=== PATIENT | female | born 1935 | race Caucasian/White ===

== ENCOUNTER 2016-11-26 17:14 | Emergency (ER) | payer MEDICARE, OTHER ==
[2016-11-26] MEDS ORDERED: ACETAMINOPHEN 325 MG TABLET PO ONE (18:04)
--- NOTE | 2016-11-26 19:25 | ER Document Report ---
ED Fall - General Chief Complaint: Fall Injury Stated Complaint: FALL LEFT LEG PAIN Time seen by provider: 19:25 Mode of Arrival: Medic Information source: Patient TRAVEL OUTSIDE OF THE [place] IN LAST 30 DAYS: No - HPI Patient complains to provider of: fall at home Occurred: Just prior to arrival Where: Home Associated symptoms: Difficulty walking Location of injury/pain: Back, Hip Quality of pain: Achy Severity: Moderate Pain Level: 4 Notes: Patient is an 81-year-old female brought to the emergency room by EMS for complaints of fall at home, patient cannot recall how she fell, she is unsure whether she tripped and fell or passed out and fell, only remembers waking up in the floor and was unable to ambulate, states she scooted herself to the telephone and called for help, patient denies any chest pain or shortness of breath, no dizziness or lightheadedness, no numbness or tingling, denies a head injury or headache, no vomiting, nausea or diarrhea, patient does report that symptoms are reminiscent of when she had a heart attack back in August and was transferred to [facility] and received a cardiac stent - Related data Allergies/Adverse Reactions: doxycycline [Doxycycline] Allergy (Severe, Verified 11/26/16 17:51) resp distress, tachycardia hydrochlorothiazide [From Dyazide] Allergy (Severe, Verified 11/26/16 17:51) swelling of airway and tongue triamterene [From Dyazide] Allergy (Severe, Verified 11/26/16 17:51) swelling of airway and tongue adhesive tape [Adhesive Tape] Allergy (Intermediate, Verified 11/26/16 17:51) blisters at site of application latex [Latex] Allergy (Intermediate, Verified 11/26/16 17:51) red rash at site of contact diphtheria,pertussis (acellular),te [From Adacel (Adolescent & Adult)] Allergy ( Verified 11/26/16 17:51) Past Medical History - General Information source: Patient - Social History Smoking Status: Never Smoker Family History: Reviewed & Not Pertinent - Past Medical History Cardiac Medical History: Reports: Hx Hypercholesterolemia, Hx Hypertension Denies: Hx Atrial Fibrillation, Hx Congestive Heart Failure, Hx Coronary Artery Disease, Hx Heart Attack, Hx Peripheral Vascular Disease, Hx Pulmonary Embolism, Hx Heart Murmur Pulmonary Medical History: Reports: Hx Pneumonia Denies: Hx Asthma, Hx Bronchitis, Hx COPD, Hx Respiratory Failure, Hx Sleep Apnea, Hx Tuberculosis Neurological Medical History: Denies: Hx Cerebrovascular Accident, Hx Seizures Endocrine Medical History: Reports: Hx Hypothyroidism. Denies: Hx Graves' Disease, Hx Hyperthyroidism Renal/ Medical History: Denies: Hx End Stage Renal Disease, Hx Kidney Stones, Hx Peritoneal Dialysis Malignancy Medical History: Denies: Hx Leukemia, Hx Lung Cancer GI Medical History: Reports: Hx Gastroesophageal Reflux Disease. 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 Denies: Hx Bowel Surgery, Hx Section, Hx Colostomy, Hx Coronary Artery Bypass Graft, Hx Gastric Bypass Surgery, Hx Herniorrhaphy, Hx Mastectomy, Hx Pacemaker, Hx Tonsillectomy , Hx Tubal Ligation - Immunizations Hx Diphtheria, Pertussis, Tetanus Vaccination: No Hx Pneumococcal Vaccination: 07/17/11 Review of Systems - Review of Systems Constitutional: No symptoms reported EENT: No symptoms reported Cardiovascular: No symptoms reported. denies: Chest pain Respiratory: No symptoms reported. denies: Short of breath Gastrointestinal: No symptoms reported. denies: Nausea, Vomiting Genitourinary: No symptoms reported Female Genitourinary: No symptoms reported Musculoskeletal: See HPI Skin: No symptoms reported Hematologic/Lymphatic: No symptoms reported Neurological/Psychological: No symptoms reported. denies: Headaches -: Yes All other systems reviewed and negative Physical Exam - Vital signs Vitals: Temp Pulse Resp BP Pulse Ox 97.8 F 63 19 167/80 H 98 11/26/16 18:02 11/26/16 18:02 11/26/16 18:02 11/26/16 18:02 11/26/16 18:02 Interpretation: Normal - General General appearance: Appears well, Alert - HEENT Head: Normocephalic, Atraumatic Eyes: Normal Pupils: PERRL - Respiratory Respiratory status: No respiratory distress Chest status: Nontender Breath sounds: Normal Chest palpation: Normal - Cardiovascular Rhythm: Regular Heart sounds: Normal auscultation Murmur: No - Abdominal Inspection: Normal Distension: No distension Bowel sounds: Normal Tenderness: Nontender Organomegaly: No organomegaly - Back Back: Normal, Nontender - Extremities General upper extremity: Normal inspection, Nontender, Normal color, Normal ROM , Normal temperature General lower extremity: Normal color, Normal temperature. No: Lyn's sign Hip: Tender - Tender to palpate over left hip, patient reports pain with range of motion testing, distal sensation and motor intact, 2+ DP pulses - Neurological Neuro grossly intact: Yes Cognition: Normal Orientation: AAOx4 [place] Coma Scale Eye Opening: Spontaneous Tab Coma Scale Verbal: Oriented [place] Coma Scale Motor: Obeys Commands [place] Coma Scale Total: 15 Speech: Normal Motor strength normal: LUE, RUE, LLE, RLE Sensory: Normal - Psychological Associated symptoms: Normal affect, Normal mood - Skin Skin Temperature: Warm Skin Moisture: Dry Skin Color: Normal Course - Re-evaluation Re-evalutation: 11/27/16 01:09 call to [facility] transfer center, requested callback from cardiology team 11/27/16 01:35 Patient was discussed with the large animal husbandry technician at [facility], who accepts patient on behalf of Dr. Baptiste him unfortunately the transfer center states they will not have up until the morning, I discussed this with patient at bedside who agree that they would prefer to wait until a bed becomes available at [facility] , since this is where she was treated and received a cardiac stent previously, since patient is pain-free and stable I agree with this plan and patient will be transferred at such time that a bed becomes available - Vital Signs Vital signs: Temp Pulse Resp BP Pulse Ox 97.8 F 63 17 133/79 H 95 11/26/16 18:02 11/26/16 18:02 11/27/16 05:01 11/27/16 05:01 11/27/16 05:01 - Laboratory Result Diagrams: 11/26/16 19:45 11/26/16 19:45 Laboratory results interpreted by me: 11/26/16 11/26/16 11/26/16 19:45 19:45 23:50 RDW 14.4 H Seg Neutrophils % 82.7 H Lymphocytes % 9.8 L Creatine Kinase 29 L 27 L - Diagnostic Test Radiology reviewed: Image reviewed, Reports reviewed - EKG Interpretation by Me EKG shows normal: Sinus rhythm Rate: Normal Rhythm: NSR Discharge - Discharge Clinical Impression: Non-ST elevation (NSTEMI) myocardial infarction Contusion of left hip Qualifiers: Encounter type: initial encounter Qualified Code(s): S70.02XA - Contusion of left hip, initial encounter Condition: Stable Disposition: [facility]
[2016-11-26] MEDS ORDERED: HYDROMORPHONE HCL INJ/PF 2 MG/ML AMPULE IV ONE (19:29)
[2016-11-26 19:57] LABS: ABSOLUTE BASOPHILS # (AUTO) 0.1 10^3/uL (0.0-0.2); ABSOLUTE EOSINOPHILS # (AUTO) 0.1 10^3/uL (0.0-0.6); ABSOLUTE LYMPHOCYTES (AUTO) 0.8 10^3/uL (0.5-4.7); ABSOLUTE MONOCYTES (AUTO) 0.5 10^3/uL (0.1-1.4); BASOPHILS % (AUTO) 0.7 % (0-2); EOSINOPHILS % (AUTO) 0.7 % (0-6); HEMATOCRIT 36.3 % (36.0-47.0); HEMOGLOBIN 12.7 g/dL (12.0-15.5); HGB HCT DIFFERENCE 1.8; LYMPHOCYTES % (AUTO) 9.8 % (13-45); MEAN CORPUSCULAR HEMOGLOBIN 29.6 pg (27.0-33.4); MEAN CORPUSCULAR HGB CONC 34.8 g/dL (32.0-36.0); MEAN CORPUSCULAR VOLUME 85 fl (80-97); MONOCYTES % (AUTO) 6.1 % (3-13); RED BLOOD COUNT 4.28 10^6/uL (3.72-5.28); RED CELL DISTRIBUTION WIDTH 14.4 % (11.5-14.0); SEGMENTED NEUTROPHILS % (AUTO) 82.7 % (42-78); WHITE BLOOD COUNT 8.4 10^3/uL (4.0-10.5)
[2016-11-26 20:21] LABS: ALANINE AMINOTRANSFERASE 21 U/L (9-52); ALBUMIN 3.9 g/dL (3.5-5.0); ALKALINE PHOSPHATASE 79 U/L (38-126); ANION GAP 11 (5-19); ASPARTATE AMINO TRANSFERASE 21 U/L (14-36); BILIRUBIN,TOTAL 0.4 mg/dL (0.2-1.3); BLOOD UREA NITROGEN 12 mg/dL (7-20); CALCIUM 9.5 mg/dL (8.4-10.2); CARBON DIOXIDE 28 mmol/L (22-30); CHLORIDE 106 mmol/L (98-107); CREATINE KINASE 29 U/L (30-135); CREATININE RESULT 0.72 mg/dL (0.52-1.25); GLUCOSE 98 mg/dL (75-110); POTASSIUM 3.7 mmol/L (3.6-5.0); TOTAL PROTEIN 6.3 g/dL (6.3-8.2)
[2016-11-26 20:32] LABS: CREATINE KINASE MB 0.82 ng/mL (<4.55)
[2016-11-26 20:36] LABS: TROPONIN I 0.035 ng/mL
[2016-11-26 21:21] LABS: PROTHROMBIN TIME 13.8 SEC (11.4-15.4)
[2016-11-26 21:22] LABS: PARTIAL THROMBOPLASTIN TIME 31.5 SEC (23.5-35.8)
[2016-11-27 00:25] LABS: CREATINE KINASE MB 1.12 ng/mL (<4.55)
[2016-11-27 00:28] LABS: TROPONIN I 0.209 ng/mL
[2016-11-27] MEDS ORDERED: ASPIRIN 81 MG TABLET, CHEWABLE PO ONE (01:09)
[2016-11-27] MEDS ORDERED: DIPHENHYDRAMINE HCL 50 MG/ML VIAL IV ONE (04:30)
[2016-11-27] MEDS ORDERED: ASPIRIN 81 MG TABLET, CHEWABLE ONE (04:33)
[2016-11-27 05:37] LABS: CREATINE KINASE MB 1.28 ng/mL (<4.55); TROPONIN I 0.225 ng/mL
[2016-11-27] MEDS ORDERED: ENOXAPARIN SODIUM INJ 60 MG/0.6 ML DISP.SYRIN SUBCUT ONE (08:19)
[2016-11-27] MEDS ORDERED: CLOPIDOGREL BISULFATE 300 MG TABLET PO ONE (08:19)
[2016-11-27] MEDS ORDERED: LEVOTHYROXINE SODIUM 0.025 MG TABLET PO ONE (08:20)
[2016-11-27] MEDS ORDERED: ATORVASTATIN CALCIUM 10 MG TABLET PO ONE (08:21)
[2016-11-27] MEDS ORDERED: BRIMONIDINE TARTRATE 0.2% OPH SOLN 5 ML OU ONE (08:22)
[2016-11-27] MEDS ORDERED: FAMOTIDINE INJ/PF 20 MG/2 ML SDV IV ONE (08:23)
--- NOTE | 2016-11-27 09:43 | EKG REPORT ---
SEVERITY:- ABNORMAL ECG - SINUS RHYTHM CONSIDER LEFT VENTRICULAR HYPERTROPHY : Confirmed by: Lucia Mayorga MD 27-Nov-2016 09:42:30
[2016-11-27] MEDS ORDERED: ONDANSETRON HCL INJ/PF 4 MG/2 ML SDV IV ONE (11:43)
[2016-11-27] MEDS ORDERED: HYDROMORPHONE HCL INJ/PF 2 MG/ML AMPULE IV ONE (11:43)
--- NOTE | 2016-11-27 15:56 | ER Document Report ---
Doctor's Note Notes: 11/27/16 15:56 pt stable at this time, reviewed labs and awaiting transfer
--- NOTE | 2016-11-27 15:58 | ER Document Report ---
Doctor's Note Notes: 11/27/16 15:55 The patient was turned over to me at shift change 6 AM this morning. She has been stable throughout the day. Her regular medications were ordered except for her blood pressure medication and nitrates, as she was chest pain-free throughout the day and her blood pressure ran in the 110 systolic range. Her Plavix was increased to 300 mg for today's dose, she did not receive any yesterday. She was also given a dose of Lovenox. She required one dose of hydromorphone 0.5 mg once this afternoon for her hip pain. She continues to wait on transfer to [facility], however I was recently told that there is a bed and they are coming for her now. Patient's care is turned over to Dr. Chaudhry at this time, pending arrival of the transport team.
[2016-11-27 18:40] VITALS: BP 110/57
== END 2016-11-27 18:00 | disposition short-term general hospital (02) ==
LOC: ER 17:14
DX: I21.4 Non-ST elevation (NSTEMI) myocardial infarction (principal); S70.02XA Contusion of left hip, initial encounter; W18.30XA Fall on same level, unspecified, initial encounter; Y92.009 Unspecified place in unspecified non-institutional (private) residence as the place of occurrence of the external cause; E78.00 Pure hypercholesterolemia, unspecified; I10 Essential (primary) hypertension; E03.9 Hypothyroidism, unspecified; Z90.49 Acquired absence of other specified parts of digestive tract; Z90.710 Acquired absence of both cervix and uterus; Z79.01 Long term (current) use of anticoagulants
CPT/HCPCS: 93005; 96376; 99285; 96372; 96374; 96375; 36415; 82553; 82550; 85025; 85610; 85730; 80053; 84484; 71010; 73552; 73502; 93010; A9270 ×5; J1200; J1170 ×2; J2405; J3490; J1650; S0028

== ENCOUNTER 2016-12-10 18:25 | Observation (INO) | payer MEDICARE, OTHER ==
[2016-12-10] MEDS ORDERED: NORMAL SALINE 1000 ML 1,000 ML IV ONE (19:02)
--- NOTE | 2016-12-10 19:02 | ER Document Report ---
ED General - General Mode of Arrival: Medic Information source: Patient TRAVEL OUTSIDE OF THE [place] IN LAST 30 DAYS: No - HPI Patient complains to provider of: Whole body stiffness Onset: Other - past 2 weeks Associated symptoms: Other - see above <BENNIE BLANCO - Last Filed: 12/10/16 21:54> <SONIA ORTEGA - Last Filed: 12/11/16 03:23> - General Chief Complaint: Hip Pain Stated Complaint: BACK PAIN Notes: 81 year old female with history of a hip replacement presents to the ED complaining of whole body stiffness and pain to the back and legs with movement that has been present since she was discharged from [facility] after suffering a fall on 11/25/2016. Patient's son states that after the fall, xrays were normal, but her troponin was elevated. Patient was transferred to [facility] where here troponin levels were normal and she was discharged after changing her Lipitor medication from 10mg to 40mg. Son states that the patient has been bed ridden for the past 2 weeks and has been having difficulty moving. Patient has not been eating or drinking normally and is complaining of whole body stiffness. Patient's primary care provider is Dr. Pastor. (BENNIE BLANCO) - Related Data Allergies/Adverse Reactions: doxycycline [Doxycycline] Allergy (Severe, Verified 11/26/16 17:51) resp distress, tachycardia hydrochlorothiazide [From Dyazide] Allergy (Severe, Verified 11/26/16 17:51) swelling of airway and tongue triamterene [From Dyazide] Allergy (Severe, Verified 11/26/16 17:51) swelling of airway and tongue adhesive tape [Adhesive Tape] Allergy (Intermediate, Verified 11/26/16 17:51) blisters at site of application latex [Latex] Allergy (Intermediate, Verified 11/26/16 17:51) red rash at site of contact diphtheria,pertussis (acellular),te [From Adacel (Adolescent & Adult)] Allergy ( Verified 11/26/16 17:51) Home Medications: Current Home Medications Acetaminophen [Tylenol] 325 mg PO PRN PRN 12/10/16 [History] Brimonidine Tartrate [Alphagan P] 5 ml OP PRN PRN 12/10/16 [History] Isosorbide Mononitrate [Isosorbide Mononitrate ER] 15 mg PO DAILY 12/10/16 [ History] Lidocaine [Lidocaine] 1 patch .ROUTE DAILY 12/10/16 [History] Metoprolol Succinate [Metoprolol Succinate] 12.5 mg PO DAILY 12/10/16 [History] Nitroglycerin [Nitroglycerin] 1 tab SL PRN PRN 12/10/16 [History] Pantoprazole Sodium 1 tab PO DAILY 12/10/16 [History] Polyethylene Glycol 3350 [Miralax Powder 17 gm/Packet] 1 packet PO DAILY [History] Past Medical History - General Information source: Patient, Relative - Social History Smoking Status: Unknown if Ever Smoked Family History: Reviewed & Not Pertinent - Past Medical History Cardiac Medical History: Reports: Hx Hypercholesterolemia, Hx Hypertension Pulmonary Medical History: Reports: Hx Pneumonia Endocrine Medical History: Reports: Hx Hypothyroidism GI Medical History: Reports: Hx Gastroesophageal Reflux Disease Musculoskeltal Medical History: Reports Hx Arthritis Traumatic Medical History: Reports: Hx Fractures - LEFT hip 2010, fell in kitchen at home Past Surgical History: Reports: Hx Abdominal Surgery - 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., Hx Appendectomy - at time of open nevaeh, Hx Cardiac Surgery - Stent 2015, Hx Cholecystectomy - open, Hx Hysterectomy, Hx Orthopedic Surgery - Hip replacement - Immunizations Hx Diphtheria, Pertussis, Tetanus Vaccination: No Hx Pneumococcal Vaccination: 07/17/11 <BENNIE BLANCO - Last Filed: 12/10/16 21:54> Review of Systems - Review of Systems Constitutional: See HPI, Recent illness - Fall on 11/25/2016 EENT: No symptoms reported Cardiovascular: No symptoms reported Respiratory: No symptoms reported Gastrointestinal: See HPI, Poor appetite, Poor fluid intake Genitourinary: No symptoms reported Female Genitourinary: No symptoms reported Musculoskeletal: See HPI, Back pain - with movement, Other - "whole body stiffness". Bilateral leg pain with movement. Skin: No symptoms reported Hematologic/Lymphatic: No symptoms reported Neurological/Psychological: No symptoms reported -: Yes All other systems reviewed and negative <BENNIE BLANCO - Last Filed: 12/10/16 21:54> Physical Exam - Vital signs Interpretation: Normal - General General appearance: Appears well In distress: None - HEENT Head: Normocephalic, Atraumatic Eyes: Normal Extraocular movements intact: Yes Pupils: PERRL - Respiratory Respiratory status: No respiratory distress Breath sounds: Normal - Cardiovascular Rhythm: Regular Heart sounds: Normal auscultation - Abdominal Inspection: Normal - Back Back: Tender - tenderness to palpation of the midline back from L3 to L5. No: Normal - Extremities General upper extremity: Normal inspection, Normal ROM General lower extremity: No: Normal inspection, Normal ROM - decreased range of motion of the bilateral lower extremities - Neurological Neuro grossly intact: Yes Cognition: Normal Orientation: AAOx4 [place] Coma Scale Eye Opening: Spontaneous [place] Coma Scale Verbal: Oriented Tab Coma Scale Motor: Obeys Commands Tab Coma Scale Total: 15 Speech: Normal - Psychological Associated symptoms: Normal affect, Normal mood - Skin Skin Temperature: Warm Skin Moisture: Dry Skin Color: Normal <BENNIE BLANCO - Last Filed: 12/10/16 21:54> <SONIA ORTEGA - Last Filed: 12/11/16 03:23> - Vital signs Vitals: Temp Pulse Resp BP Pulse Ox 98.5 F 63 22 H 129/68 H 97 12/10/16 18:41 12/10/16 18:41 12/10/16 18:41 12/10/16 18:41 12/10/16 18:41 (BENNIE BLANCO) (SONIA ORTEGA) Course - Laboratory Result Diagrams: 12/10/16 20:50 12/10/16 19:03 - Consults Dr. Dudley Time consulted: 21:42 Dr. Medel Time consulted: 21:49 <BENNIE BLANCO - Last Filed: 12/10/16 21:54> - Laboratory Result Diagrams: 12/10/16 20:50 12/10/16 19:03 - Diagnostic Test Radiology reviewed: Reports reviewed - EKG Interpretation by Sd EKG shows normal: Sinus rhythm Rate: Normal Rhythm: NSR <SONIA ORTEGA - Last Filed: 12/11/16 03:23> - Re-evaluation Re-evalutation: 12/11/16 Patient is an 81-year-old female who comes in complaining of hip and back pain. CT showing a femur fracture and also an L2 compression fracture. Patient was discussed with her orthopedic doctor, Dr. Dudley who will evaluate the patient. Patient will be admitted to medicine. No acute findings on blood work. This is been discussed with her son at length. Agrees with admission. (SONIA ORTEGA) - Vital Signs Vital signs: Temp Pulse Resp BP Pulse Ox 98.0 F 68 17 128/65 H 98 12/11/16 01:00 12/11/16 01:00 12/11/16 01:00 12/11/16 01:00 12/11/16 01:00 (BENNIE BLANCO) (SONIA ORTEGA) - Laboratory Laboratory results interpreted by me: 12/10/16 12/10/16 19:03 20:50 RBC 3.52 L Hgb 10.1 L Hct 30.6 L RDW 14.7 H Total Protein 6.2 L (SONIA ROTEGA) - Consults Dr. Dudley Reason for consultation: 12/10/16 21:42 Patient was discussed with Dr. Dudley and he agrees to consult with the patient in the morning. (BENNIE BLANCO) Dr. Medel Reason for consultation: 12/10/16 21:49 Patient was discussed with Dr. Medel and accepts the patient until Dr. Dudley consults in the morning. (BENNIE BLANCO) Discharge <BENNIE BLANCO - Last Filed: 12/10/16 21:54> - Discharge Admitting Provider: Ricardo Medel Unit Admitted: Telemetry <SONIA ORTEGA - Last Filed: 12/11/16 03:23> - Discharge Clinical Impression: Compression fracture of L2 Femur fracture, left Qualifiers: Encounter type: initial encounter Femur location: shaft Fracture type: closed Fracture morphology: oblique Fracture alignment: nondisplaced Qualified Code(s) : S72.335A - Nondisplaced oblique fracture of shaft of left femur, initial encounter for closed fracture Condition: Stable Disposition: ADMITTED INPATIENT Scribe Attestation: 12/11/16 03:23 I personally performed the services described in the documentation, reviewed and edited the documentation which was dictated to the scribe in my presence, and it accurately records my words and actions. (SONIA ORTEGA) Scribe Documentation - Scribe Written by Scribe:: Jason Nelson, 12/10/2016 20:05 acting as scribe for :: Kirstin <BENNIE BLANCO - Last Filed: 12/10/16 21:54>
[2016-12-10] MEDS ORDERED: MORPHINE SULFATE 10 MG/ML INJ IV ONE (19:03)
[2016-12-10] MEDS ORDERED: ONDANSETRON HCL INJ/PF 4 MG/2 ML SDV IV ONE (19:03)
[2016-12-10 19:19] LABS: PROTHROMBIN TIME 13.2 SEC (11.4-15.4)
[2016-12-10 19:33] LABS: ALANINE AMINOTRANSFERASE 33 U/L (9-52); ALBUMIN 3.6 g/dL (3.5-5.0); ALKALINE PHOSPHATASE 125 U/L (38-126); ANION GAP 13 (5-19); ASPARTATE AMINO TRANSFERASE 23 U/L (14-36); BILIRUBIN,TOTAL 0.7 mg/dL (0.2-1.3); BLOOD UREA NITROGEN 19 mg/dL (7-20); CALCIUM 9.6 mg/dL (8.4-10.2); CARBON DIOXIDE 23 mmol/L (22-30); CHLORIDE 105 mmol/L (98-107); CREATINE KINASE 62 U/L (30-135); CREATININE RESULT 0.75 mg/dL (0.52-1.25); GLUCOSE 92 mg/dL (75-110); POTASSIUM 3.9 mmol/L (3.6-5.0); TOTAL PROTEIN 6.2 g/dL (6.3-8.2)
[2016-12-10 21:13] LABS: ABSOLUTE BASOPHILS # (AUTO) 0.1 10^3/uL (0.0-0.2); ABSOLUTE EOSINOPHILS # (AUTO) 0.2 10^3/uL (0.0-0.6); ABSOLUTE LYMPHOCYTES (AUTO) 0.9 10^3/uL (0.5-4.7); ABSOLUTE MONOCYTES (AUTO) 0.5 10^3/uL (0.1-1.4); ABSOLUTE NEUT (AUTO) 3.6 10^3/uL (1.7-8.2); EOSINOPHILS % (AUTO) 3.9 % (0-6); HEMATOCRIT 30.6 % (36.0-47.0); HEMOGLOBIN 10.1 g/dL (12.0-15.5); HGB HCT DIFFERENCE -0.3; LYMPHOCYTES % (AUTO) 16.7 % (13-45); MEAN CORPUSCULAR HEMOGLOBIN 28.8 pg (27.0-33.4); MEAN CORPUSCULAR HGB CONC 33.1 g/dL (32.0-36.0); MEAN CORPUSCULAR VOLUME 87 fl (80-97); MONOCYTES % (AUTO) 9.1 % (3-13); RED BLOOD COUNT 3.52 10^6/uL (3.72-5.28); RED CELL DISTRIBUTION WIDTH 14.7 % (11.5-14.0); SEGMENTED NEUTROPHILS % (AUTO) 69.3 % (42-78); WHITE BLOOD COUNT 5.2 10^3/uL (4.0-10.5)
[2016-12-10 22:07] LABS: ADD ON TESTING BLD IN LAB ACKNOWLEDGE
[2016-12-10 22:28] LABS: MAGNESIUM 1.8 mg/dL (1.6-2.3)
[2016-12-10 23:48] LABS: CREATINE KINASE MB 0.91 ng/mL (<4.55)
[2016-12-10] MEDS ORDERED: ACETAMINOPHEN 325 MG TABLET PO PRN (23:49)
[2016-12-10] MEDS ORDERED: MAGNESIUM HYDROXIDE SUSP 30 ML UDCUP PO PRN (23:49)
[2016-12-10] MEDS ORDERED: POTASSI CL 20 MEQ/D5NS 1L 1,000 ML IV PRN (23:49)
[2016-12-10 23:50] LABS: TROPONIN I < 0.012 ng/mL
[2016-12-10] MEDS ORDERED: OXYCODONE HCL IR 5 MG TABLET PO PRN (23:55)
[2016-12-10] MEDS ORDERED: MORPHINE SULFATE 10 MG/ML INJ IV PRN (23:55)
[2016-12-11] MEDS ORDERED: MORPHINE SULFATE 10 MG/ML INJ IV ONE (00:13)
--- NOTE | 2016-12-11 00:20 | PDOC H&P ---
History of Present Illness Admission Date/PCP: 12/10/16 22:[address] replacement Dr[address] Luis Enrique Cruz Patient complains of: Lt LE pain History of Present Illness: LUCIANA HAGER is a 81 year old female, with underlying arthritis, status post left hip replacement in 2010 for fracture repair, status post fall on the 10th of this month onto her left side, with persistent pain along her left lower extremity and all over body stiffness. Was actually transferred to [facility] at the time of her fall for a troponin of 0.2, with subsequent workup there basically unremarkable, with neither stress test nor heart catheterization performed. Discharge summary and history and physical from [facility] have been reviewed. She is status post stent implant 1 in September of last year for chest pain after a fall. Workup here has revealed a fracture of the left femoral metaphysis, with previous hardware in place, along with a acute compression fracture of the second lumbar vertebra. No chest pain, nausea or vomiting. Patient has been discussed with emergency room physician who evaluated the patient. . Laboratory results are listed in [facility] and are reviewed. X-ray summary results are listed below, with full report(s) reviewed. . EKG pending Social history/personal habits: . Normally lives alone. Currently residing at [facility]. Has children. No use of tobacco alcohol or illicit drugs. Allergies/adverse reactions are listed in [facility] and are reviewed. Home medications are reviewed from a copy of the medication administration record from [facility] and are to be reconciled by nursing staff in [facility]. Home medications initially autopopulated into [facility] may not accurately reflect patient's true medications, dosages, and/or frequencies. REVIEW OF SYSTEMS: Constitutional: No fever or chills. Eyes: Wears glasses. ENT: No swallowing problems or complaints. No hearing problems or complaints. Pulmonary: No current complaints. Cardiovascular: No current complaints, including chest pain. Gastrointestinal: No current complaints, including nausea or vomiting. Skin: No current complaints, including rashes. Hematologic: Easy bruising. Neurologic: No current complaints, including numbness or tingling. Musculoskeletal: See history and present illness. Psychiatric: Anxiety Endocrine: No current complaints, including polyuria. Genitourinary: No current complaints, including dysuria. PHYSICAL EXAMINATION: 5 feet 7 inches tall. 54.4 kg. BMI 18.8 kg/m. Pulse 63. Blood pressure 129/ 68. Respirations are 22 and unlabored. 97% saturation on room air. Temperature 98.5. Thin somewhat chronically ill-appearing female who appears perhaps a bit older than her stated age. She is awake alert pleasant and cooperative. A bit argumentative at times. Son is present at her side; patient approves. Skin is warm and dry. No grossly obvious evidence of rash in areas of skin examined. No subcutaneous nodules palpated. ENT: Hearing grossly normal to normal conversation. Tongue midline on protrusion pink and slightly tacky. Eyes: No scleral icterus. Pupils equal and reactive to light at 4 mm. Solen conjunctivae. Neck is supple and nontender to gentle active range of motion and palpation. Midline trachea. No palpable thyroid nodule mass enlargement or tenderness. Lymphatic: No palpable cervical or clavicular nodes. Psychiatric: Reasonable insight into acute and chronic medical issues. Oriented to time location and why here. Lungs: Auscultation reveals clear and equal breath sounds bilaterally. No use of accessory respiratory muscles. Cardiovascular: Heart regular rate and rhythm, without gallop murmur or rub. No carotid or abdominal aortic bruits. No ankle or pedal edema. Faintly palpable dorsalis pedis pulses. Abdomen: soft, , nontender with positive bowel sounds. No palpable upper abdominal mass or organomegaly.. Extremities: Feet are warm and dry. No calf tenderness to compression. No grossly obvious visual evidence of calf swelling. Gentle manipulation of right lower extremity fails to reveal any obvious evidence of injury or instability to knee hip or ankle. Not attempted on left due to her injury. Neurologic: Moves upper extremities grossly normally. Patellar reflexes absent. Absent Babinski, right; not attempted on left due to her injury. Light touch is intact at feet. Dorsiflexion and plantarflexion of feet 5 / 5 and symmetric. 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 Denies: Hemorrhagic CVA, Ischemic CVA, Seizures Endocrine Medical History: Reports: Hypothyroidism Denies: Diabetes Mellitus Type 1, Diabetes Mellitus Type 2, Hyperthyroidism Renal/ Medical History: Reports: Other - Occasional UTI Denies: End Stage Renal Disease Malignancy Medical History: Reports: Skin Cancer - Several precancerous skin lesions excised from face Denies: Leukemia, Lung Cancer GI Medical History: Reports: Gastroesophageal Reflux Disease Denies: Cirrhosis, Crohn's Disease, Hepatitis, Hiatal Hernia Musculoskeltal Medical History: Reports: Arthritis Denies: Fibromyalgia Skin Medical History: Denies: Eczema, Psoriasis Psychiatric Medical History: Reports: General Anxiety Disorder Denies: Alcohol Dependency, Bipolar Disorder, Dementia, Depression, Post Traumatic Stress Disorder, Substance Abuse, Tobacco Dependency Hematology: Reports: Anemia - as chid only, Other - Easy bruising Denies: Hemophilia, Sickle Cell Disease Infectious Medical History: Denies: Hepatitis B, Hepatitis C, HIV Past Surgical History Past Surgical History: Reports: Appendectomy - at time of open nevaeh, Cholecystectomy - open, Coronary Stent - September 2016 [facility] , Hysterectomy, Orthopedic Surgery - Hip replacement, 2010 Denies: Amputation, Section, Colostomy, Coronary Artery Bypass Graft , Gastric Bypass Surgery, Herniorrhaphy, Mastectomy, Pacemaker, Tonsillectomy, Tubal Ligation Social History Information Source: Patient, Relative, Emergency Med Personnel, [facility] Records Lives with: [facility] Smoking Status: Unknown if Ever Smoked Frequency of Alcohol Use: None Hx Recreational Drug Use: No Hx Prescription Drug Abuse: No - Advance Directive Resuscitation Status: Full Code Surrogate healthcare decision maker:: Twin son and daughter Family History Family History: Reviewed & Not Pertinent Parental Family History Reviewed: Yes Children Family History Reviewed: Yes Sibling(s) Family History Reviewed.: Yes Medication/Allergy Home Medications: RX: Amlodipine Besylate [Norvasc 2.5 mg Tablet] 2.5 mg PO DAILY 12/11/16 RX: Aspirin [Ecotrin 81 mg EC Tablet] 81 mg PO DAILY 12/11/16 RX: Atorvastatin Calcium [Lipitor 10 mg Tablet] 10 mg PO QHS 12/11/16 RX: Biotin [Biotin 1 mg Tablet] 4 mg PO Q6HP PRN 12/11/16 RX: Brimonidine Tartrate [Alphagan P] 1 drop OU BID 12/11/16 RX: Clopidogrel Bisulfate [Plavix 75 mg Tablet] 75 mg PO DAILY 12/11/16 RX: Cyanocobalamin (Vitamin B-12) [B-12] 1,000 mcg PO DAILY 12/11/16 RX: Ergocalciferol (Vitamin D2) [Drisdol 50,000 unit (1.25MG) Capsule] 50,000 unit PO [id number] 12/11/16 RX: Fesoterodine Fumarate [Toviaz] 4 mg PO DAILY 12/11/16 RX: Isosorbide Mononitrate [Isosorbide Mononitrate ER] 30 mg PO QAM 12/11/16 RX: Levothyroxine Sodium [Synthroid] 25 mcg PO QAM 12/11/16 RX: Lidocaine [Lidoderm] 1 patch TOP DAILY 12/11/16 RX: Lisinopril 5 mg PO QAM 12/11/16 RX: Metoprolol Succinate [Toprol Xl] 12.5 mg PO DAILY 12/11/16 RX: Multivit-Min/Iron Fum/Folic AC [Vgqcv-Xfmirda-Pjkfuiul Tablet] 1 tab PO DAILY 12/11/16 RX: Nitroglycerin 0.4 mg PO PRN PRN 12/11/16 RX: Ondansetron HCl [Zofran 4 mg Tablet] 4 mg PO Q4HP PRN 12/11/16 RX: Polyethylene Glycol 3350 [Miralax Powder 17 gm/Packet] 17 gm PO DAILYP PRN 12/11/16 RX: Acetaminophen [Tylenol 325 mg Tablet] 650 mg PO Q4HP PRN tablet 12/16/16 RX: Citalopram Hydrobromide [Celexa 20 mg Tablet] 10 mg PO DAILY tablet RX: Docusate Sodium [Colace 100 mg Capsule] 100 mg PO BID capsule 12/16/16 RX: Gabapentin [Neurontin 100 mg Capsule] 100 mg PO QHS capsule 12/16/16 RX: Magnesium Hydroxide [Milk of Magnesia 30 ml Udcup] 30 ml PO Q48HP PRN udc 12/16/16 RX: Methyl Salicylate/Menthol [Zac-[facility] [place] 29 gm] 1 applic TP TIDP PRN tube 12/16/16 RX: Oxycodone HCl [Oxy-Ir 5 mg Tablet] 5 mg PO Q8 #15 tablet 12/16/16 Allergies/Adverse Reactions: doxycycline [Doxycycline] Allergy (Severe, Verified 11/26/16 17:51) resp distress, tachycardia hydrochlorothiazide [From Dyazide] Allergy (Severe, Verified 11/26/16 17:51) swelling of airway and tongue triamterene [From Dyazide] Allergy (Severe, Verified 11/26/16 17:51) swelling of airway and tongue adhesive tape [Adhesive Tape] Allergy (Intermediate, Verified 11/26/16 17:51) blisters at site of application latex [Latex] Allergy (Intermediate, Verified 11/26/16 17:51) red rash at site of contact diphtheria,pertussis (acellular),te [From Adacel (Adolescent & Adult)] Allergy ( Verified 11/26/16 17:51) Physical Exam Vital Signs: Temp Pulse Resp BP Pulse Ox 98.5 F 63 22 H 129/68 H 97 12/10/16 18:41 12/10/16 18:41 12/10/16 18:41 12/10/16 18:41 12/10/16 18:41 Results Impressions: Abdomen/Pelvis CT 12/10/16 19:03 IMPRESSION: New Mild compression fracture of the L2 vertebral body superior endplate. There are also nondisplaced fractures in the proximal left femoral metaphysis, the prosthesis appears intact and in expected position, and this fracture was not seen on the 11/26/2016 radiograph. Otherwise, NO ACUTE PROCESS IN THE ABDOMEN OR PELVIS. Assessment & Plan - Diagnosis (1) Anemia Qualifiers: Anemia type: unspecified type Qualified Code(s): D64.9 - Anemia, unspecified Is this a current diagnosis for this admission?: YesPlan: No need for transfusion at present. Repeat CBC. Stool for occult blood. (2) Compression fracture of L2 Is this a current diagnosis for this admission?: YesPlan: Pain control. Orthopedics consult; Dr. Dudley aware patient has been admitted and will see her in consultation. Impression and plans were discussed with patient, and son, both of whom concur. Time spent in evaluation and management of patient: 68 minutes. (3) DVT prophylaxis Is this a current diagnosis for this admission?: YesPlan: SCDs. Medical prophylaxis per orthopedics, per usual protocol. (4) Femur fracture, left Qualifiers: Encounter type: initial encounter Femur location: shaft Fracture type: closed Fracture morphology: oblique Fracture alignment: nondisplaced Qualified Code(s): S72.335A - Nondisplaced oblique fracture of shaft of left femur, initial encounter for closed fracture Is this a current diagnosis for this admission?: Yes (5) Stented coronary artery Is this a current diagnosis for this admission?: YesPlan: Cardiac enzymes. EKG is pending. Preop cardiology consult. (6) DNR (do not resuscitate) Is this a current diagnosis for this admission?: YesPlan: Implications of DO NOT RESUSCITATE/DO NOT INTUBATE status discussed with patient and son. Discussed in layperson's terms. Implications understood. Patient is the health care decision maker. Her conversation is lucid and appropriate. Patient desires DO NOT RESUSCITATE/DO NOT INTUBATE status, as has been the case in the past.. Will honor patient wishes. (7) HTN (hypertension) Qualifiers: Hypertension type: essential hypertension Qualified Code(s): I10 - Essential (primary) hypertension Is this a current diagnosis for this admission?: YesPlan: Resume home medications as appropriate once these have been reviewed. (8) Hyperlipidemia Qualifiers: Hyperlipidemia type: unspecified Qualified Code(s): E78.5 - Hyperlipidemia, unspecified Is this a current diagnosis for this admission?: YesPlan: Resume home medications as appropriate once these have been reviewed. (9) Hypothyroid Qualifiers: Hypothyroidism type: unspecified Qualified Code(s): E03.9 - Hypothyroidism, unspecified Is this a current diagnosis for this admission?: YesPlan: TSH is pending. Resume home medications as appropriate once these have been reviewed. - Inpatient Certification Based on my medical assessment, after consideration of the patient's comorbidities, presenting symptoms, or acuity I expect that the services needed warrant INPATIENT care.: Yes I certify that my determination is in accordance with my understanding of Medicare's requirements for reasonable and necessary INPATIENT services [42 CFR 412.3e].: Yes Medical Necessity: Need For Continuous Telemetry Monitoring, Need for Pain Control, Need for Surgery, Risk of Diagnosis Which Will Require Inpatient Eval/ Care/Monitoring Post Hospital Care: D/C or Transfer Summary
[2016-12-11] MEDS ORDERED: ACETAMINOPHEN 325 MG TABLET PO PRN (04:09)
[2016-12-11] MEDS ORDERED: LEVOTHYROXINE SODIUM 0.025 MG TABLET PO SCH (06:00)
[2016-12-11 06:40] LABS: HEMOGLOBIN 10.4 g/dL (12.0-15.5); HGB HCT DIFFERENCE -1.8; MEAN CORPUSCULAR HGB CONC 31.6 g/dL (32.0-36.0); MEAN CORPUSCULAR VOLUME 89 fl (80-97); RED BLOOD COUNT 3.72 10^6/uL (3.72-5.28); RED CELL DISTRIBUTION WIDTH 14.4 % (11.5-14.0); WHITE BLOOD COUNT 5.7 10^3/uL (4.0-10.5)
--- NOTE | 2016-12-11 07:03 | PDOC CONSULTATION ---
Consultation Consult Date: 12/11/16 Consult reason:: Left leg and low back pain History of Present Illness Admission Date/PCP: 12/10/16 23:49 History of Present Illness: The patient is an 81-year-old white female with multiple medical ongoing issues including cardiac stent placement recently. She fell on 11/25/2016 and sustained injuries to her left leg and her low back. She was hospitalized in [place] without a clear diagnosis. Her pain and functional disability have continued. She was evaluated emergency room last night where an L2 compression fracture and a left proximal femur fracture were identified. Orthopedics was consult at for fracture management. 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 Denies: Hemorrhagic CVA, Ischemic CVA, Seizures Endocrine Medical History: Reports: Hypothyroidism Denies: Diabetes Mellitus Type 1, Diabetes Mellitus Type 2, Hyperthyroidism Renal/ Medical History: Reports: Other - Occasional UTI Denies: End Stage Renal Disease Malignancy Medical History: Reports: Skin Cancer - Several precancerous skin lesions excised from face Denies: Leukemia, Lung Cancer GI Medical History: Reports: Gastroesophageal Reflux Disease Denies: Cirrhosis, Crohn's Disease, Hepatitis, Hiatal Hernia Musculoskeltal Medical History: Reports: Arthritis Denies: Fibromyalgia Skin Medical History: Denies: Eczema, Psoriasis Psychiatric Medical History: Reports: General Anxiety Disorder Denies: Alcohol Dependency, Bipolar Disorder, Dementia, Depression, Post Traumatic Stress Disorder, Substance Abuse, Tobacco Dependency Hematology: Reports: Anemia - as chid only, Other - Easy bruising Denies: Hemophilia, Sickle Cell Disease Infectious Medical History: Denies: Hepatitis B, Hepatitis C, HIV Past Surgical History Past Surgical History: Reports: Appendectomy - at time of open nevaeh, Cholecystectomy - open, Coronary Stent - September 2016 [facility] , Hysterectomy, Orthopedic Surgery - Hip replacement, 2010 Denies: Amputation, Section, Colostomy, Coronary Artery Bypass Graft , Gastric Bypass Surgery, Herniorrhaphy, Mastectomy, Pacemaker, Tonsillectomy, Tubal Ligation Social History Information Source: Patient, Relative, [facility] Records [facility] with: [facility] Smoking Status: Never Smoker Frequency of Alcohol Use: None Hx Recreational Drug Use: No Drugs: None Hx Prescription Drug Abuse: No - Advance Directive Resuscitation Status: Full Code Family History Family History: Reviewed & Not Pertinent Parental Family History Reviewed: No Children Family History Reviewed: No Sibling(s) Family History Reviewed.: No Medication/Allergy Home Medications: Cyanocobalamin (Vitamin B-12) [Vitamin B-12 1000 mcg Tablet] 1,000 mcg PO QAM Fesoterodine Fumarate [Toviaz] 4 mg PO DAILY #30 tab.sr.24h 06/16/15 Lisinopril 20 mg PO QAM 07/08/15 Aspirin 81 mg PO DAILY 12/10/15 Biotin [Biotin-D] 1 gm PO DAILY 12/10/15 Levothyroxine Sodium [Synthroid 0.1 mg Tablet] 0.1 mg PO DAILY 12/10/15 Sertraline HCl [Zoloft] 25 mg PO DAILY 12/10/15 Atorvastatin Calcium [Lipitor 10 mg Tablet] 10 mg PO QHS 05/29/16 Ondansetron [Zofran Odt 4 mg Tablet] 4 mg PO Q4HP PRN #20 tab.rapdis 09/11/16 Clopidogrel Bisulfate [Plavix] 1 tab PO DAILY 11/27/16 Docusate Sodium 100 cap PO PRN PRN 11/27/16 Acetaminophen [Tylenol] 325 mg PO PRN PRN 12/10/16 Brimonidine Tartrate [Alphagan P] 5 ml OP PRN PRN 12/10/16 Isosorbide Mononitrate [Isosorbide Mononitrate ER] 15 mg PO DAILY 12/10/16 Lidocaine [Lidocaine] 1 patch .ROUTE DAILY 12/10/16 Metoprolol Succinate [Metoprolol Succinate] 12.5 mg PO DAILY 12/10/16 Nitroglycerin [Nitroglycerin] 1 tab SL PRN PRN 12/10/16 Pantoprazole Sodium 1 tab PO DAILY 12/10/16 Polyethylene Glycol 3350 [Miralax Powder 17 gm/Packet] 1 packet PO DAILY Allergies/Adverse Reactions: doxycycline [Doxycycline] Allergy (Severe, Verified 11/26/16 17:51) resp distress, tachycardia hydrochlorothiazide [From Dyazide] Allergy (Severe, Verified 11/26/16 17:51) swelling of airway and tongue triamterene [From Dyazide] Allergy (Severe, Verified 11/26/16 17:51) swelling of airway and tongue adhesive tape [Adhesive Tape] Allergy (Intermediate, Verified 11/26/16 17:51) blisters at site of application latex [Latex] Allergy (Intermediate, Verified 11/26/16 17:51) red rash at site of contact diphtheria,pertussis (acellular),te [From Adacel (Adolescent & Adult)] Allergy ( Verified 11/26/16 17:51) Review of Systems All systems: as per PMH Physical Exam Vital Signs: Temp Pulse Resp BP Pulse Ox 36.7 C 67 17 128/65 H 98 12/11/16 01:00 12/11/16 02:00 12/11/16 01:00 12/11/16 01:00 12/11/16 01:00 Intake & Output 12/09/16 12/10/16 12/11/16 06:59 06:59 06:59 Intake Total 320 Balance 320 Weight 54.8 kg General appearance: PRESENT: mild distress, thin Head exam: PRESENT: normocephalic Eye exam: PRESENT: EOMI Respiratory exam: PRESENT: unlabored Cardiovascular exam: PRESENT: RRR Pulses: PRESENT: +1 pedal pulses bilateral Vascular exam: PRESENT: normal capillary refill GI/Abdominal exam: PRESENT: soft Rectal exam: PRESENT: deferred Extremities exam: PRESENT: other - Passive range of motion of the left lower extremity is painful both in the groin as well as in the low back. Distal neurovascular examination is without focal deficit. Neurological exam: PRESENT: alert, awake, oriented to person, oriented to place , oriented to time, oriented to situation Psychiatric exam: PRESENT: appropriate affect, normal mood. ABSENT: homicidal ideation, suicidal ideation Results Laboratory Results: 12/11/16 06:02 12/11/16 06:02 WBC 5.7 RBC 3.72 Hgb 10.4 L Hct 33.0 L MCV 89 MCH 28.0 MCHC 31.6 L RDW 14.4 H Plt Count 242 Impressions: Abdomen/Pelvis CT 12/10/16 19:03 IMPRESSION: New Mild compression fracture of the L2 vertebral body superior endplate. There are also nondisplaced fractures in the proximal left femoral metaphysis, the prosthesis appears intact and in expected position, and this fracture was not seen on the 11/26/2016 radiograph. Otherwise, NO ACUTE PROCESS IN THE ABDOMEN OR PELVIS. Status: Imported from PACS Assessment & Plan - Diagnosis (1) Compression fracture of L2 Is this a current diagnosis for this admission?: YesPlan: 81-year-old white female status post fall in November 25 with a presumed acute L2 compression fracture. She may benefit from kyphoplasty. I've taken the liberty of consult [facility] pain management for consideration thereof. (2) Femur fracture, left Qualifiers: Encounter type: initial encounter Femur location: shaft Fracture type: closed Fracture morphology: oblique Fracture alignment: nondisplaced Qualified Code(s): S72.335A - Nondisplaced oblique fracture of shaft of left femur, initial encounter for closed fracture Is this a current diagnosis for this admission?: YesPlan: 81-year-old female status post left proximal femoral hemiarthroplasty in 2010 now with what appears to be potentially an avulsion fracture at the lesser trochanter. This is opposed to a structural significant fracture and I think that the implant continues to be stable. I don't think any acute therapy as needed for this other than physical therapy to mobilize on a weightbearing as tolerated basis. - Time Time Spent: 50 to 70 Minutes Anticipated discharge: SNF Within: Other
[2016-12-11] MEDS ORDERED: CYANOCOBALAMIN (VITAMIN B-12) 1,000 MCG TABLET PO SCH (08:00)
[2016-12-11] MEDS: OXYCODONE HCL IR 5 MG TABLET PO PRN ×2 (09:50→17:07)
[2016-12-11] MEDS: DOCUSATE SODIUM 100 MG CAPSULE PO SCH ×2 (09:51→17:07)
[2016-12-11] MEDS: BRIMONIDINE TARTRATE 0.2% OPH SOLN 5 ML OU SCH ×2 (09:54→17:08)
[2016-12-11] MEDS ORDERED: ISOSORBIDE MONONITRATE 30 MG TAB.ER.24H PO SCH (10:00)
[2016-12-11] MEDS ORDERED: ASPIRIN 81 MG TABLET, CHEWABLE PO SCH (10:00)
[2016-12-11] MEDS ORDERED: METOPROLOL SUCCINATE 25 MG TAB.SR.24H PO SCH (10:00)
[2016-12-11] MEDS ORDERED: CLOPIDOGREL BISULFATE 75 MG TABLET PO SCH (10:00)
[2016-12-11] MEDS ORDERED: (PENDING PHARMACY ID) (Sertraline Hcl [Zoloft] 25 MG) PO SCH (10:00)
[2016-12-11] MEDS ORDERED: LISINOPRIL 10 MG TABLET PO SCH (10:00)
[2016-12-11] MEDS ORDERED: SERTRALINE HCL 50 MG TABLET PO SCH (10:00)
[2016-12-11] MEDS ORDERED: POLYETHYLENE GLYCOL 3350 POWDER 17 GM/1 PACKET PO SCH (10:00)
[2016-12-11] MEDS ORDERED: (PENDING PHARMACY ID) (Brimonidine Tartrate [Alphagan P] 1 DROP) OU SCH ×2 (10:00→18:00)
--- NOTE | 2016-12-11 12:54 | EKG REPORT ---
SEVERITY:- ABNORMAL ECG - SINUS RHYTHM ABNORMAL T, CONSIDER ISCHEMIA, ANT-LAT LEADS : Confirmed by: Lucia Mayorga MD 11-Dec-2016 12:53:54
[2016-12-11] MEDS ORDERED: (PENDING PHARMACY ID) (Ondansetron Hcl [Zofran 4 Mg Tablet] 4 MG) PO PRN (14:38)
[2016-12-11] MEDS ORDERED: BIOTIN PO PRN (14:38)
[2016-12-11] MEDS ORDERED: POLYETHYLENE GLYCOL 3350 POWDER 17 GM/1 PACKET PO PRN (14:38)
[2016-12-11] MEDS ORDERED: ERGOCALCIFEROL (VITAMIN D2) 50000 UNIT (1.25 MG) CAPSULE PO SCH (15:00)
[2016-12-11] MEDS ORDERED: ONDANSETRON 4 MG TAB.RAPDIS PO PRN (15:17)
--- NOTE | 2016-12-11 17:14 | PDOC PROGRESS REPORT ---
Subjective Progress Note for:: 12/11/16 Subjective:: The patient was seen earlier today on rounds. Pain is well controlled. Daughter is present the bedside I given the patient's care. The patient denies any nausea, vomiting, diarrhea, shortness of breath, dizziness, chest pain, heart palpitations, fevers, or chills. The patient has remained afebrile. Blood pressures have been in a good range. When prompted the patient voices no other concerns at this time. Review of systems: The rest of the review of systems is negative. Physical Exam Vital Signs: Temp Pulse Resp BP Pulse Ox 98.0 F 59 L 14 106/61 96 12/11/16 16:48 12/11/16 16:48 12/11/16 16:48 12/11/16 16:48 12/11/16 16:48 Intake & Output 12/09/16 12/10/16 12/11/16 23:59 23:59 23:59 Intake Total 320 Balance 320 Weight 54.8 kg General appearance: PRESENT: no acute distress, thin Head exam: PRESENT: atraumatic, normocephalic Eye exam: PRESENT: conjunctiva pale, EOMI, PERRLA. ABSENT: scleral icterus Ear exam: PRESENT: normal external ear exam Mouth exam: PRESENT: moist, tongue midline Neck exam: ABSENT: carotid bruit, JVD, lymphadenopathy, thyromegaly Respiratory exam: PRESENT: clear to auscultation chiquita. ABSENT: rales, rhonchi, wheezes Cardiovascular exam: PRESENT: RRR. ABSENT: diastolic murmur, rubs, systolic murmur Pulses: PRESENT: normal dorsalis pedis pul Vascular exam: PRESENT: normal capillary refill GI/Abdominal exam: PRESENT: normal bowel sounds, soft. ABSENT: distended, guarding, mass, organolmegaly, rebound, tenderness Rectal exam: PRESENT: deferred Extremities exam: PRESENT: full ROM. ABSENT: calf tenderness, clubbing, pedal edema Neurological exam: PRESENT: alert, awake, oriented to person, oriented to place , oriented to time, oriented to situation, CN II-XII grossly intact. ABSENT: motor sensory deficit Psychiatric exam: PRESENT: appropriate affect, normal mood. ABSENT: homicidal ideation, suicidal ideation Skin exam: PRESENT: dry, intact, warm. ABSENT: cyanosis, rash Results Laboratory Results: 12/11/16 06:02 01/26/17 06:02 WBC 5.7 RBC 3.72 Hgb 10.4 L Hct 33.0 L MCV 89 MCH 28.0 MCHC 31.6 L RDW 14.4 H Plt Count 242 Impressions: Abdomen/Pelvis CT 12/10/16 19:03 IMPRESSION: New Mild compression fracture of the L2 vertebral body superior endplate. There are also nondisplaced fractures in the proximal left femoral metaphysis, the prosthesis appears intact and in expected position, and this fracture was not seen on the 11/26/2016 radiograph. Otherwise, NO ACUTE PROCESS IN THE ABDOMEN OR PELVIS. Assessment & Plan - Diagnosis (1) Compression fracture of L2 Is this a current diagnosis for this admission?: YesPlan: The patient is to be seen by Dr. Mauricio for evaluation for kyphoplasty. (2) Femur fracture, left Qualifiers: Encounter type: initial encounter Femur location: shaft Fracture type: closed Fracture morphology: oblique Fracture alignment: nondisplaced Qualified Code(s): S72.335A - Nondisplaced oblique fracture of shaft of left femur, initial encounter for closed fracture Is this a current diagnosis for this admission?: YesPlan: Patient has been seen with Dr. Dudley with orthopedics. The patient has not operative candidate this point. (3) HTN (hypertension) Qualifiers: Hypertension type: essential hypertension Qualified Code(s): I10 - Essential (primary) hypertension Is this a current diagnosis for this admission?: Yes (4) Hyperlipidemia Qualifiers: Hyperlipidemia type: unspecified Qualified Code(s): E78.5 - Hyperlipidemia, unspecified Is this a current diagnosis for this admission?: Yes (5) Hypothyroid Qualifiers: Hypothyroidism type: unspecified Qualified Code(s): E03.9 - Hypothyroidism, unspecified Is this a current diagnosis for this admission?: Yes (6) DNR (do not resuscitate) Is this a current diagnosis for this admission?: Yes (7) DVT prophylaxis Is this a current diagnosis for this admission?: Yes (8) Stented coronary artery Is this a current diagnosis for this admission?: Yes - Time Time Spent with patient: on this visit including assessment, plan, physical examination, family meeting, and specialty collaboration, and patient education is 35 minutes. Time Spent with patient: 35 or more minutes Medications reviewed and adjusted accordingly: Yes Anticipated discharge: SNF Within: when bed available Disposition: The patient is a DO NOT RESUSCITATE DO NOT INTUBATE. Pending patient's symptomatology and diagnostic findings will reevaluate as needed.
[2016-12-11] MEDS ORDERED: POTASSI CL 20 MEQ/D5NS 1L 1,000 ML IV PRN (21:08)
[2016-12-11] MEDS: LIDOCAINE 5% (700 MG) TRANSDERMAL ADH..PATCH TOP SCH (21:36)
[2016-12-11] MEDS: LIDOCAINE 5% (700 MG) TRANSDERMAL ADH..PATCH TP SCH (21:36)
[2016-12-11] MEDS: ATORVASTATIN CALCIUM 10 MG TABLET PO SCH (21:36)
[2016-12-11] MEDS ORDERED: ATORVASTATIN CALCIUM 10 MG TABLET PO SCH (22:00)
--- NOTE | 2016-12-12 07:03 | PDOC PROGRESS REPORT ---
Subjective Progress Note for:: 12/12/16 Subjective:: Patient more comfortable today Physical Exam Vital Signs: Temp Pulse Resp BP Pulse Ox 36.8 C 49 L 18 104/52 L 97 12/11/16 23:53 12/12/16 02:00 12/11/16 23:53 12/11/16 23:53 12/11/16 23:53 Intake & Output 12/11/16 12/12/16 12/13/16 06:59 06:59 06:59 Intake Total 320 450 Balance 320 450 Weight 54.8 kg 58.4 kg Results Laboratory Results: 12/11/16 06:02 Impressions: Abdomen/Pelvis CT 12/10/16 19:03 IMPRESSION: New Mild compression fracture of the L2 vertebral body superior endplate. There are also nondisplaced fractures in the proximal left femoral metaphysis, the prosthesis appears intact and in expected position, and this fracture was not seen on the 11/26/2016 radiograph. Otherwise, NO ACUTE PROCESS IN THE ABDOMEN OR PELVIS. Assessment & Plan - Diagnosis (1) Compression fracture of L2 Is this a current diagnosis for this admission?: YesPlan: Awaiting MRI scan (2) Femur fracture, left Qualifiers: Encounter type: initial encounter Femur location: shaft Fracture type: closed Fracture morphology: oblique Fracture alignment: nondisplaced Qualified Code(s): S72.335A - Nondisplaced oblique fracture of shaft of left femur, initial encounter for closed fracture Is this a current diagnosis for this admission?: YesPlan: Can be mobilized on a weightbearing to comfort basis
[2016-12-12] MEDS: OXYCODONE HCL IR 5 MG TABLET PO PRN ×3 (08:17→20:26)
[2016-12-12] MEDS: LEVOTHYROXINE SODIUM 0.025 MG TABLET PO SCH (08:17)
[2016-12-12] MEDS: LISINOPRIL 5 MG TABLET PO SCH (08:17)
[2016-12-12] MEDS: ISOSORBIDE MONONITRATE 30 MG TAB.ER.24H PO SCH (08:18)
[2016-12-12] MEDS: NITROGLYCERIN 0.4 MG/TAB 25 TAB/BOTTLE SL PRN (08:26)
[2016-12-12] MEDS ORDERED: LORAZEPAM INJ 2 MG/1 ML VIAL IV ONE (08:30)
[2016-12-12] MEDS ORDERED: AMLODIPINE BESYLATE 2.5 MG TABLET PO SCH (10:00)
[2016-12-12] MEDS ORDERED: (PENDING PHARMACY ID) (Multivit-Min/Iron Fum/Folic Ac [Multi-Vitamin-Minerals Tablet] 1 TA PO SCH (10:00)
[2016-12-12] MEDS ORDERED: LIDOCAINE 5% (700 MG) TRANSDERMAL ADH..PATCH TOP SCH (10:00)
[2016-12-12] MEDS ORDERED: (PENDING PHARMACY ID) (Fesoterodine Fumarate [Toviaz] 4 MG) PO SCH (10:00)
[2016-12-12] MEDS: ASPIRIN 81 MG TABLET, ENT COATED PO SCH (11:09)
[2016-12-12] MEDS: METOPROLOL SUCCINATE 25 MG TAB.SR.24H PO SCH (11:09)
[2016-12-12] MEDS: CYANOCOBALAMIN (VITAMIN B-12) 1,000 MCG TABLET PO SCH (11:09)
[2016-12-12] MEDS: DOCUSATE SODIUM 100 MG CAPSULE PO SCH ×2 (11:09→17:25)
[2016-12-12] MEDS: SERTRALINE HCL 50 MG TABLET PO SCH (11:10)
[2016-12-12] MEDS: CLOPIDOGREL BISULFATE 75 MG TABLET PO SCH (11:10)
[2016-12-12] MEDS: MULTIVITAMINS W-IRON TABLET, CHEWABLE PO SCH (11:11)
[2016-12-12] MEDS: BRIMONIDINE TARTRATE 0.2% OPH SOLN 5 ML OU SCH ×3 (11:12→17:27)
--- NOTE | 2016-12-12 12:46 | EKG REPORT ---
SEVERITY:- ABNORMAL ECG - SINUS RHYTHM ABNORMAL T, CONSIDER ISCHEMIA, ANT-LAT LEADS : Confirmed by: Lucia Mayorga MD 12-Dec-2016 12:45:50
[2016-12-12] MEDS ORDERED: LORAZEPAM INJ 2 MG/1 ML VIAL ONE (13:30)
--- NOTE | 2016-12-12 15:17 | PDOC PROGRESS REPORT ---
Subjective Progress Note for:: 12/12/16 Subjective:: The patient was seen earlier today on rounds. Patient states that she feels much better sent she has seen Dr. Mauricio. The patient has done well with the lidocaine patches. The patient denies any nausea, vomiting, diarrhea, shortness of breath, dizziness, chest pain, heart palpitations, fevers, or chills. The patient has remained afebrile. Blood pressures have been in a good range. When prompted the patient voices no other concerns at this time. Review of systems: The rest of the review of systems is negative. Physical Exam Vital Signs: Temp Pulse Resp BP Pulse Ox 98.2 F 57 L 17 127/68 H 99 12/12/16 11:29 12/12/16 11:29 12/12/16 11:29 12/12/16 11:29 12/12/16 11:29 Intake & Output 12/10/16 12/11/16 12/12/16 23:59 23:59 23:59 Intake Total 320 1050 Balance 320 1050 Weight 54.8 kg 58.4 kg General appearance: PRESENT: no acute distress, thin Head exam: PRESENT: atraumatic, normocephalic Eye exam: PRESENT: conjunctiva pale, EOMI, PERRLA. ABSENT: scleral icterus Ear exam: PRESENT: normal external ear exam Mouth exam: PRESENT: moist, tongue midline Neck exam: ABSENT: carotid bruit, JVD, lymphadenopathy, thyromegaly Respiratory exam: PRESENT: clear to auscultation chiquita. ABSENT: rales, rhonchi, wheezes Cardiovascular exam: PRESENT: RRR. ABSENT: diastolic murmur, rubs, systolic murmur Pulses: PRESENT: normal dorsalis pedis pul Vascular exam: PRESENT: normal capillary refill GI/Abdominal exam: PRESENT: normal bowel sounds, soft. ABSENT: distended, guarding, mass, organolmegaly, rebound, tenderness Rectal exam: PRESENT: deferred Extremities exam: PRESENT: full ROM. ABSENT: calf tenderness, clubbing, pedal edema Neurological exam: PRESENT: alert, awake, oriented to person, oriented to place , oriented to time, oriented to situation, CN II-XII grossly intact. ABSENT: motor sensory deficit Psychiatric exam: PRESENT: appropriate affect, normal mood. ABSENT: homicidal ideation, suicidal ideation Skin exam: PRESENT: dry, intact, warm. ABSENT: cyanosis, rash Results Laboratory Results: 12/11/16 06:02 Impressions: Abdomen/Pelvis CT 12/10/16 19:03 IMPRESSION: New Mild compression fracture of the L2 vertebral body superior endplate. There are also nondisplaced fractures in the proximal left femoral metaphysis, the prosthesis appears intact and in expected position, and this fracture was not seen on the 11/26/2016 radiograph. Otherwise, NO ACUTE PROCESS IN THE ABDOMEN OR PELVIS. Assessment & Plan - Diagnosis (1) Compression fracture of L2 Is this a current diagnosis for this admission?: YesPlan: The patient has been evaluated by Dr. Mauricio for evaluation for kyphoplasty. The patient is currently awaiting MRI. (2) Femur fracture, left Qualifiers: Encounter type: initial encounter Femur location: shaft Fracture type: closed Fracture morphology: oblique Fracture alignment: nondisplaced Qualified Code(s): S72.335A - Nondisplaced oblique fracture of shaft of left femur, initial encounter for closed fracture Is this a current diagnosis for this admission?: YesPlan: Patient has been seen with Dr. Dudley with orthopedics. The patient has not operative candidate this point. (3) HTN (hypertension) Qualifiers: Hypertension type: essential hypertension Qualified Code(s): I10 - Essential (primary) hypertension Is this a current diagnosis for this admission?: Yes (4) Hyperlipidemia Qualifiers: Hyperlipidemia type: unspecified Qualified Code(s): E78.5 - Hyperlipidemia, unspecified Is this a current diagnosis for this admission?: Yes (5) Hypothyroid Qualifiers: Hypothyroidism type: unspecified Qualified Code(s): E03.9 - Hypothyroidism, unspecified Is this a current diagnosis for this admission?: Yes (6) DNR (do not resuscitate) Is this a current diagnosis for this admission?: Yes (7) DVT prophylaxis Is this a current diagnosis for this admission?: Yes (8) Stented coronary artery Is this a current diagnosis for this admission?: Yes - Time Time Spent with patient: on this visit including assessment, plan, physical examination, and patient education is 25 minutes. Time Spent with patient: 25-34 minutes Medications reviewed and adjusted accordingly: Yes Anticipated discharge: SNF Within: when bed available Disposition: The patient is currently awaiting a bed at [facility].
--- NOTE | 2016-12-12 20:23 | CONSULTATION REPORT E ---
Consultation Report NAME: LUCIANA HAGER : 1935 AGE: 81Y DATE: 12/11/2016 and 12/12/2016 428 A TO: PRATIK DOMINGUEZ M.D. FROM: AC EDWARDS M.D. Requesting Physician REQUESTING PHYSICIAN: EDMUND ORDONEZ M.D./PH.D REASON FOR CONSULTATION: Lumbar vertebral compression fracture, evaluate for potential kyphoplasty. CHIEF COMPLAINT: Pain in the low back and left leg. HISTORY OF PRESENT ILLNESS: The patient is a pleasant 81-year-old female with a past medical history of coronary artery disease, status post recent LAD stent, hyperlipidemia, hypertension, TIAs and arthritis. The patient notably has been recently admitted to pain in the low back and left lower extremity. The patient sustained a fall November 25 onto her left side and after evaluation was found to have slight fracture fragment around hardware from a left hip replacement and also an acute compression fracture of the L2 vertebral body. The patient notes that she has been having severe and sharp pain in both back and the left hip. The pain is much worse with any movement or activity. The patient was previously at [facility] after recent trip to [facility]. Apparently just after her fall on her left side, she complained of some chest pain and was found to have a troponin of 0.2, which was elevated. She underwent workup with stress test and further laboratory studies which were unremarkable at [facility] and was then subsequently discharged to [facility]. However, her pain was so poorly controlled she was having difficulty participating in physical therapy and returned to the hospital for further evaluation. Today the patient notes that she has been started on oxycodone and this seems to be helping more than previous. The patient was using tramadol at her rehab facility which was not very helpful. She was using Lidoderm patches at the time as well to her back which was helpful, and that has not been restarted of yet. The patient denies any particular radiation component of pain, new weakness, numbness, or tingling in the lower extremities or loss of bowel or bladder function other than urge incontinence which was previously present. The patient's daughter is here with her today for evaluation. The patient does note that her low back pain has been present for quite some time, years in fact, though this is as bad as it has ever been. PAST MEDICAL HISTORY: 1. Hypertension. 2. Hyperlipidemia. 3. Coronary artery disease. 4. History of TIA. 5. Osteoarthritis. 6. History of precancerous skin lesions status post excision. 7. Gastroesophageal reflux disease. 8. General anxiety disorder. PAST SURGICAL HISTORY: 1. Cholecystectomy and appendectomy years ago. 2. Coronary stenting x1 September 2016 at [facility]. 3. Hysterectomy. 4. Hip replacement 2010. SOCIAL HISTORY: The patient is here today with her daughter. She is a nonsmoker. She denies any illicit drug use. She denies any alcohol use. MEDICATIONS: 1. Vitamin B12. 2. Toviaz. 3. Lisinopril 20 mg p.o. daily. 4. Aspirin 81 mg p.o. daily. 5. Biotin 1 gm daily. 6. Synthroid 0.1 mg tablets daily. 7. Sertraline 25 mg p.o. daily. 8. Atorvastatin. 9. Ondansetron. 10. Plavix 75 mg p.o. daily. 11. Docusate 100 mg p.o. p.r.n. 12. Acetaminophen 325 mg p.o. p.r.n. 13. Alphagan solution 5 mL ophthalmic solution. 14. Isosorbide mononitrate 50 mg p.o. daily. 15. Lidocaine patches, 1 patch to back application daily. 16. Metoprolol 12.5 mg p.o. daily. 17. Nitroglycerin 1 tab p.r.n. 18. Pantoprazole 1 tab p.o. daily. 19. Polyethylene glycol 17 gm. 20. In-house 5 mg oxycodone p.o. q.4 h. p.r.n. ALLERGIES: 1. DOXYCYCLINE. 2. HYDROCHLOROTHIAZIDE. 3. TRIAMTERENE. 4. ADHESIVE TAPE. 5. LATEX. 6. PERTUSSIS VACCINE. PHYSICAL EXAMINATION: VITAL SIGNS: Temperature 98.2 Fahrenheit, pulse 70, blood pressure 127/68, respirations 17, saturation 99% on room air. Pain 2/5 on a numeric rating scale. GENERAL: The patient is a pleasant, thin, elderly female, lying on her bed in no acute distress from pain. She does grimace occasionally when she tries to roll from [id number]. HEENT: Head is normocephalic, atraumatic. SKIN: No overt rashes appreciated. NECK: Supple. The patient does have tenderness to palpation throughout the cervical paravertebral musculature as well as the rhomboids and trapezius musculature. There is some mild limitation of range of motion of the neck due to pain. PSYCHIATRIC: Oriented to time and reason for admission. LUNGS: Even and unlabored work of breathing. CARDIOVASCULAR: Pulse is regular with radial palpation bilaterally. ABDOMEN: Soft. Colostomy bag in place in left abdomen. MUSCULOSKELETAL: The patient has some tenderness to palpation in the midline of the lumbar spine from approximately the L5 to the L3 level. There is some paravertebral muscular tenderness as well. The patient has tenderness to palpation along the lateral aspect of the left lower extremity near the hip as well. Good pulses and reasonable perfusion noted in the left foot. NEUROLOGIC: Moves all extremities without difficulty. No overt or gross neurologic deficits appreciated. There is no sensory deficit appreciated in the lower extremities. REVIEW OF SYSTEMS: Excepting that which is listed in the HPI, the patient does note some mild constipation and hardening of stools, however, denies other review of systems. PERTINENT LABORATORY TESTS: Imaging: Abdomen and pelvis CT demonstrated a new compression fracture of the L2 vertebral body superior endplate as well as nondisplaced fractures in the proximal left femoral metaphysis with an intact prosthesis. Lumbar spine MRI 12/12/2016 demonstrated confirmation of acute endplate compression fracture of L2 with subacute deformity, minimal retropulsion appreciated. There is also some mild facet hypertrophy at L1-2, mild disk bulging and facet hypertrophy at L2-3, and mild facet hypertrophy at L3-4. There is no spinal stenosis appreciated at other levels. ASSESSMENT: 1. Subacute L2 compression fracture. 2. Back pain. 3. Hip pain. IMPRESSION AND PLAN: The patient is a pleasant 81-year-old female who has had a recent fall resulting in compression fracture of the L2 vertebral body and some injury to her left hip. The patient at this time does not require any further surgical intervention for the left hip. The pain that she has had from the low back specifically has made it difficult for her to participate in rehabilitation and physical therapy. Notably while consulted for pain control, it is noted that the patient underwent stenting apparently to the left anterior descending x1 in September of 2015. I contacted the patient's furnace liner, Dr. Cruz, and spoke to his office about this recent procedure and whether or not the patient would be cleared to be off of Clopidogrel for a period of time, as this would be required prior to performing any sort of interventional spine procedure. Given that the patient is so close out from stenting, she may not be off of her blood thinners for a period of 1 year excepting a non-elective procedure. As such at this time, I cannot recommend for kyphoplasty, as there are apparently no safe alternatives to prevent the patient from having occlusion of her coronary stent. As such, we are essentially left with medication management techniques. I recommend the patient continue oxycodone 5 mg p.o. q.4 h. p.r.n. pain. I am going to have physical therapy come and walk with the patient and also hopefully be able to dose her with oxycodone 5 mg 30 minutes prior to working with physical therapy to see how this will work for her with regards to pain relief and being able to participate in physical activity. I have also recommended that the patient resume Lidoderm patches. I recommend 1 Lidoderm patch to be applied to the midline and 1 to the hip every 12 hours. Also, I will start gabapentin at low dose, 100 mg p.o. at bedtime to help patient not only sleep through the night but improve any neuropathic component of pain. I have also recommended use of Zac-Arreguin to the neck and shoulder area when patient has some muscular soreness and stiffness. The patient may certainly follow up with me as an outpatient at [facility] for further discussion and modification of her medication regimen as needed. Thank you very much for this interesting consult. I am sorry that we were unable to provide kyphoplasty procedure; however, at this point, apparently the risks of stopping blood-thinning medications do not outweigh potential benefits from the elective pain management procedure. Again, thank you very much for this consultation. DICTATING PHYSICIAN: PRATIK DOMINGUEZ M.D. [id number] PHY#: [id number] [id number] JOB#: [id number] ACCT: [id number] cc:PRATIK DOMINGUEZ M.D. >
[2016-12-12] MEDS: HEPARIN SOD (PORCINE) 5,000 UNIT/ML 1 ML SYRINGE SUBCUT SCH (21:25)
[2016-12-12] MEDS: ATORVASTATIN CALCIUM 10 MG TABLET PO SCH (21:25)
[2016-12-12] MEDS: LIDOCAINE 5% (700 MG) TRANSDERMAL ADH..PATCH TP SCH (21:25)
[2016-12-12] MEDS: LIDOCAINE 5% (700 MG) TRANSDERMAL ADH..PATCH TOP SCH (21:26)
[2016-12-12] MEDS ORDERED: OXYCODONE HCL IR 5 MG TABLET PO SCH (22:45)
[2016-12-12] MEDS: GABAPENTIN 100 MG CAPSULE PO SCH (22:53)
[2016-12-13] MEDS: DOCUSATE SODIUM 100 MG CAPSULE PO SCH ×2 (09:20→17:51)
[2016-12-13] MEDS: METOPROLOL SUCCINATE 25 MG TAB.SR.24H PO SCH (09:21)
[2016-12-13] MEDS: ISOSORBIDE MONONITRATE 30 MG TAB.ER.24H PO SCH (09:23)
[2016-12-13] MEDS: LEVOTHYROXINE SODIUM 0.025 MG TABLET PO SCH (09:23)
[2016-12-13] MEDS: CLOPIDOGREL BISULFATE 75 MG TABLET PO SCH (09:24)
[2016-12-13] MEDS: OXYCODONE HCL IR 5 MG TABLET PO PRN ×3 (09:24→22:07)
[2016-12-13] MEDS: CYANOCOBALAMIN (VITAMIN B-12) 1,000 MCG TABLET PO SCH (09:24)
[2016-12-13] MEDS: SERTRALINE HCL 50 MG TABLET PO SCH (09:25)
[2016-12-13] MEDS: ASPIRIN 81 MG TABLET, ENT COATED PO SCH (09:25)
[2016-12-13] MEDS: LISINOPRIL 5 MG TABLET PO SCH (09:25)
[2016-12-13] MEDS: MULTIVITAMINS W-IRON TABLET, CHEWABLE PO SCH (09:26)
[2016-12-13] MEDS: BRIMONIDINE TARTRATE 0.2% OPH SOLN 5 ML OU SCH ×3 (09:26→17:51)
[2016-12-13] MEDS: METHYL SALICYLATE/MENTHOL BALM 29 GM TP PRN (09:33)
[2016-12-13] MEDS: HEPARIN SOD (PORCINE) 5,000 UNIT/ML 1 ML SYRINGE SUBCUT SCH ×2 (12:29→22:03)
--- NOTE | 2016-12-13 16:52 | PDOC PROGRESS REPORT ---
Subjective Progress Note for:: 12/13/16 Subjective:: The patient was seen earlier today on rounds. Patient states that she feels much better sent she has seen Dr. Mauricio. Patient stated that she did not sleep well last night but she refused the Neurontin that Dr. Mauricio started at bedtime. I made the patient aware that I would not be prescribing sedative agents or occasions such as Ambien for sleep while in the hospital environment. The patient has done well with the lidocaine patches. The patient denies any nausea, vomiting, diarrhea, shortness of breath, dizziness, chest pain, heart palpitations, fevers, or chills. The patient has remained afebrile. Blood pressures have been in a good range. When prompted the patient voices no other concerns at this time. Review of systems: The rest of the review of systems is negative. Physical Exam Vital Signs: Temp Pulse Resp BP Pulse Ox 97.8 F 55 L 16 146/78 H 98 12/13/16 11:42 12/13/16 14:00 12/13/16 11:42 12/13/16 11:42 12/13/16 11:42 Intake & Output 12/11/16 12/12/16 12/13/16 23:59 23:59 23:59 Intake Total 320 1260 180 Balance 320 1260 180 Weight 54.8 kg 58.4 kg 58.4 kg General appearance: PRESENT: no acute distress, thin Head exam: PRESENT: atraumatic, normocephalic Eye exam: PRESENT: conjunctiva pale, EOMI, PERRLA. ABSENT: scleral icterus Ear exam: PRESENT: normal external ear exam Mouth exam: PRESENT: moist, tongue midline Neck exam: ABSENT: carotid bruit, JVD, lymphadenopathy, thyromegaly Respiratory exam: PRESENT: clear to auscultation chiquita. ABSENT: rales, rhonchi, wheezes Cardiovascular exam: PRESENT: RRR. ABSENT: diastolic murmur, rubs, systolic murmur Pulses: PRESENT: normal dorsalis pedis pul Vascular exam: PRESENT: normal capillary refill GI/Abdominal exam: PRESENT: normal bowel sounds, soft. ABSENT: distended, guarding, mass, organolmegaly, rebound, tenderness Rectal exam: PRESENT: deferred Extremities exam: PRESENT: full ROM. ABSENT: calf tenderness, clubbing, pedal edema Neurological exam: PRESENT: alert, awake, oriented to person, oriented to place , oriented to time, oriented to situation, CN II-XII grossly intact. ABSENT: motor sensory deficit Psychiatric exam: PRESENT: appropriate affect, normal mood. ABSENT: homicidal ideation, suicidal ideation Skin exam: PRESENT: dry, intact, warm. ABSENT: cyanosis, rash Results Laboratory Results: 12/11/16 06:02 Impressions: Abdomen/Pelvis CT 12/10/16 19:03 IMPRESSION: New Mild compression fracture of the L2 vertebral body superior endplate. There are also nondisplaced fractures in the proximal left femoral metaphysis, the prosthesis appears intact and in expected position, and this fracture was not seen on the 11/26/2016 radiograph. Otherwise, NO ACUTE PROCESS IN THE ABDOMEN OR PELVIS. Lumbar Spine MRI 12/12/16 00:00 IMPRESSION: Subacute 25% upper endplate compression at L2, correlates with CT abdomen pelvis 12/10/2016 Assessment & Plan - Diagnosis (1) Compression fracture of L2 Is this a current diagnosis for this admission?: YesPlan: The patient is not a candidate for kyphoplasty at this time given her recent stenting in need for antiplatelet therapy. (2) Femur fracture, left Qualifiers: Encounter type: initial encounter Femur location: shaft Fracture type: closed Fracture morphology: oblique Fracture alignment: nondisplaced Qualified Code(s): S72.335A - Nondisplaced oblique fracture of shaft of left femur, initial encounter for closed fracture Is this a current diagnosis for this admission?: YesPlan: Patient has been seen with Dr. Dudley with orthopedics. The patient has not operative candidate this point. (3) HTN (hypertension) Qualifiers: Hypertension type: essential hypertension Qualified Code(s): I10 - Essential (primary) hypertension Is this a current diagnosis for this admission?: Yes (4) Hyperlipidemia Qualifiers: Hyperlipidemia type: unspecified Qualified Code(s): E78.5 - Hyperlipidemia, unspecified Is this a current diagnosis for this admission?: Yes (5) Hypothyroid Qualifiers: Hypothyroidism type: unspecified Qualified Code(s): E03.9 - Hypothyroidism, unspecified Is this a current diagnosis for this admission?: Yes (6) DNR (do not resuscitate) Is this a current diagnosis for this admission?: Yes (7) DVT prophylaxis Is this a current diagnosis for this admission?: Yes (8) Stented coronary artery Is this a current diagnosis for this admission?: Yes - Time Time Spent with patient: 25-34 minutes Medications reviewed and adjusted accordingly: Yes Anticipated discharge: SNF Within: when bed available
[2016-12-13] MEDS: ATORVASTATIN CALCIUM 10 MG TABLET PO SCH (22:02)
[2016-12-13] MEDS: GABAPENTIN 100 MG CAPSULE PO SCH (22:02)
[2016-12-13] MEDS: LIDOCAINE 5% (700 MG) TRANSDERMAL ADH..PATCH TP SCH (22:03)
[2016-12-13] MEDS: LIDOCAINE 5% (700 MG) TRANSDERMAL ADH..PATCH TOP SCH (22:03)
[2016-12-14] MEDS: OXYCODONE HCL IR 5 MG TABLET PO PRN ×3 (08:54→22:30)
[2016-12-14] MEDS: LEVOTHYROXINE SODIUM 0.025 MG TABLET PO SCH (08:54)
[2016-12-14] MEDS: LISINOPRIL 5 MG TABLET PO SCH (08:54)
[2016-12-14] MEDS: ISOSORBIDE MONONITRATE 30 MG TAB.ER.24H PO SCH (08:55)
[2016-12-14] MEDS: ASPIRIN 81 MG TABLET, ENT COATED PO SCH (11:04)
[2016-12-14] MEDS: METOPROLOL SUCCINATE 25 MG TAB.SR.24H PO SCH (11:04)
[2016-12-14] MEDS: DOCUSATE SODIUM 100 MG CAPSULE PO SCH ×2 (11:04→17:13)
[2016-12-14] MEDS: CYANOCOBALAMIN (VITAMIN B-12) 1,000 MCG TABLET PO SCH (11:05)
[2016-12-14] MEDS: SERTRALINE HCL 50 MG TABLET PO SCH (11:05)
[2016-12-14] MEDS: CLOPIDOGREL BISULFATE 75 MG TABLET PO SCH (11:05)
[2016-12-14] MEDS: BRIMONIDINE TARTRATE 0.2% OPH SOLN 5 ML OU SCH ×2 (11:06→17:14)
[2016-12-14] MEDS: MULTIVITAMINS W-IRON TABLET, CHEWABLE PO SCH (11:06)
[2016-12-14] MEDS: HEPARIN SOD (PORCINE) 5,000 UNIT/ML 1 ML SYRINGE SUBCUT SCH ×2 (11:06→23:06)
[2016-12-14] MEDS: METHYL SALICYLATE/MENTHOL BALM 29 GM TP PRN (11:07)
--- NOTE | 2016-12-14 13:36 | PDOC PROGRESS REPORT ---
Subjective Progress Note for:: 12/14/16 - ] Subjective:: The patient was seen earlier today on rounds. The patient stated that she slept well overnight. Patient states that she feels much better sent she has seen Dr. Mauricio. The patient has done well with the lidocaine patches. The patient denies any nausea, vomiting, diarrhea, shortness of breath, dizziness, chest pain, heart palpitations, fevers, or chills. The patient has remained afebrile. Blood pressures have been in a good range. When prompted the patient voices no other concerns at this time. Review of systems: The rest of the review of systems is negative. Physical Exam Vital Signs: Temp Pulse Resp BP Pulse Ox 97.6 F 57 L 18 120/57 L 97 12/14/16 11:41 12/14/16 11:41 12/14/16 11:41 12/14/16 11:41 12/14/16 11:41 Intake & Output 12/12/16 12/13/16 12/14/16 23:59 23:59 23:59 Intake Total 1260 280 55 Balance 1260 280 55 Weight 58.4 kg 58.4 kg General appearance: PRESENT: no acute distress, thin Head exam: PRESENT: atraumatic, normocephalic Eye exam: PRESENT: conjunctiva pale, EOMI, PERRLA. ABSENT: scleral icterus Ear exam: PRESENT: normal external ear exam Mouth exam: PRESENT: moist, tongue midline Neck exam: ABSENT: carotid bruit, JVD, lymphadenopathy, thyromegaly Respiratory exam: PRESENT: clear to auscultation chiquita. ABSENT: rales, rhonchi, wheezes Cardiovascular exam: PRESENT: RRR. ABSENT: diastolic murmur, rubs, systolic murmur Pulses: PRESENT: normal dorsalis pedis pul Vascular exam: PRESENT: normal capillary refill GI/Abdominal exam: PRESENT: normal bowel sounds, soft. ABSENT: distended, guarding, mass, organolmegaly, rebound, tenderness Rectal exam: PRESENT: deferred Extremities exam: PRESENT: full ROM. ABSENT: calf tenderness, clubbing, pedal edema Neurological exam: PRESENT: alert, awake, oriented to person, oriented to place , oriented to time, oriented to situation, CN II-XII grossly intact. ABSENT: motor sensory deficit Psychiatric exam: PRESENT: appropriate affect, normal mood. ABSENT: homicidal ideation, suicidal ideation Skin exam: PRESENT: dry, intact, warm. ABSENT: cyanosis, rash Results Laboratory Results: 12/11/16 06:02 Impressions: Abdomen/Pelvis CT 12/10/16 19:03 IMPRESSION: New Mild compression fracture of the L2 vertebral body superior endplate. There are also nondisplaced fractures in the proximal left femoral metaphysis, the prosthesis appears intact and in expected position, and this fracture was not seen on the 11/26/2016 radiograph. Otherwise, NO ACUTE PROCESS IN THE ABDOMEN OR PELVIS. Lumbar Spine MRI 12/12/16 00:00 IMPRESSION: Subacute 25% upper endplate compression at L2, correlates with CT abdomen pelvis 12/10/2016 Assessment & Plan - Diagnosis (1) Compression fracture of L2 Is this a current diagnosis for this admission?: YesPlan: The patient is not a candidate for kyphoplasty at this time given her recent stenting in need for antiplatelet therapy. (2) Femur fracture, left Qualifiers: Encounter type: initial encounter Femur location: shaft Fracture type: closed Fracture morphology: oblique Fracture alignment: nondisplaced Qualified Code(s): S72.335A - Nondisplaced oblique fracture of shaft of left femur, initial encounter for closed fracture Is this a current diagnosis for this admission?: YesPlan: Patient has been seen with Dr. Dudley with orthopedics. The patient has not operative candidate this point. (3) HTN (hypertension) Qualifiers: Hypertension type: essential hypertension Qualified Code(s): I10 - Essential (primary) hypertension Is this a current diagnosis for this admission?: Yes (4) Hyperlipidemia Qualifiers: Hyperlipidemia type: unspecified Qualified Code(s): E78.5 - Hyperlipidemia, unspecified Is this a current diagnosis for this admission?: Yes (5) Hypothyroid Qualifiers: Hypothyroidism type: unspecified Qualified Code(s): E03.9 - Hypothyroidism, unspecified Is this a current diagnosis for this admission?: Yes (6) DNR (do not resuscitate) Is this a current diagnosis for this admission?: Yes (7) DVT prophylaxis Is this a current diagnosis for this admission?: Yes (8) Stented coronary artery Is this a current diagnosis for this admission?: Yes - Time Time Spent with patient: 25-34 minutes Medications reviewed and adjusted accordingly: Yes Anticipated discharge: SNF Within: when bed available
[2016-12-14 14:28] LABS: APPEARANCE,URINE CLEAR; BILIRUBIN,URINE NEGATIVE (NEGATIVE); GLUCOSE, URINE NEGATIVE (NEGATIVE); KETONES,URINE NEGATIVE (NEGATIVE); LEUKOCYTE ESTERASE,URINE NEGATIVE (NEGATIVE); NITRITE,URINE NEGATIVE (NEGATIVE); PROTEIN,URINE NEGATIVE (NEGATIVE); URINE SPECIFIC GRAVITY 1.009; UROBILINOGEN,URINE NEGATIVE mg/dL (<2.0)
[2016-12-14] MEDS: NITROGLYCERIN 0.4 MG/TAB 25 TAB/BOTTLE SL PRN (18:38)
[2016-12-14] MEDS: ATORVASTATIN CALCIUM 10 MG TABLET PO SCH (22:30)
[2016-12-14] MEDS: LIDOCAINE 5% (700 MG) TRANSDERMAL ADH..PATCH TOP SCH (22:30)
[2016-12-14] MEDS: GABAPENTIN 100 MG CAPSULE PO SCH (22:30)
[2016-12-14] MEDS: LIDOCAINE 5% (700 MG) TRANSDERMAL ADH..PATCH TP SCH (22:30)
[2016-12-15] MEDS: LISINOPRIL 5 MG TABLET PO SCH (09:53)
[2016-12-15] MEDS: CYANOCOBALAMIN (VITAMIN B-12) 1,000 MCG TABLET PO SCH (09:53)
[2016-12-15] MEDS: TOLTERODINE TARTRATE 1 MG TABLET PO SCH (09:53)
[2016-12-15] MEDS: ASPIRIN 81 MG TABLET, ENT COATED PO SCH (09:53)
[2016-12-15] MEDS: ISOSORBIDE MONONITRATE 30 MG TAB.ER.24H PO SCH (09:54)
[2016-12-15] MEDS: CLOPIDOGREL BISULFATE 75 MG TABLET PO SCH (09:54)
[2016-12-15] MEDS: HEPARIN SOD (PORCINE) 5,000 UNIT/ML 1 ML SYRINGE SUBCUT SCH ×2 (09:54→23:25)
[2016-12-15] MEDS: METOPROLOL SUCCINATE 25 MG TAB.SR.24H PO SCH (09:54)
[2016-12-15] MEDS: DOCUSATE SODIUM 100 MG CAPSULE PO SCH ×2 (09:54→18:55)
[2016-12-15] MEDS: SERTRALINE HCL 50 MG TABLET PO SCH (09:54)
[2016-12-15] MEDS: BRIMONIDINE TARTRATE 0.2% OPH SOLN 5 ML OU SCH ×2 (09:55→19:07)
[2016-12-15] MEDS: LEVOTHYROXINE SODIUM 0.025 MG TABLET PO SCH (09:55)
[2016-12-15] MEDS: MULTIVITAMINS W-IRON TABLET, CHEWABLE PO SCH (09:59)
[2016-12-15] MEDS: OXYCODONE HCL IR 5 MG TABLET PO PRN (15:06)
--- NOTE | 2016-12-15 16:41 | PDOC PROGRESS REPORT ---
Subjective Progress Note for:: 12/15/16 Subjective:: The patient was seen earlier today on rounds. The patient stated she didn't sleep as well overnight. Patient states that she feels much better since has seen Dr. Mauricio. The patient has done well with the lidocaine patches. The patient denies any nausea, vomiting, diarrhea, shortness of breath, dizziness, chest pain, heart palpitations, fevers, or chills. The patient has remained afebrile. Blood pressures have been in a good range. Patient states that she no longer wants to take Zoloft. The patient is absolutely insistent that she discuss another medication options and that Celexa seems familiar. When prompted the patient voices no other concerns at this time. Review of systems: The rest of the review of systems is negative. Brief history: The patient is a 81-year-old female that was at [facility] and had complaints of extremity pain. The patient was brought to the emergency department was found to have a femur fracture. The patient was seem and scoliosis was found to be nonoperative. The patient was also noted to have a compression fracture was seen by Dr. Mauricio to valuated the patient for kyphoplasty however the patient has had a recent stenting and cannot stop her dual antiplatelet therapy. The patient can be accepted at [facility] in the a.m. Physical Exam Vital Signs: Temp Pulse Resp BP Pulse Ox 97.7 F 53 L 16 115/64 97 12/15/16 04:41 12/15/16 07:00 12/15/16 04:41 12/15/16 04:41 12/15/16 04:41 Intake & Output 12/13/16 12/14/16 12/15/16 23:59 23:59 23:59 Intake Total 280 715 5 Output Total 300 Balance 280 415 5 Weight 58.4 kg General appearance: PRESENT: no acute distress, thin Head exam: PRESENT: atraumatic, normocephalic Eye exam: PRESENT: conjunctiva pale, EOMI, PERRLA. ABSENT: scleral icterus Ear exam: PRESENT: normal external ear exam Mouth exam: PRESENT: moist, tongue midline Neck exam: ABSENT: carotid bruit, JVD, lymphadenopathy, thyromegaly Respiratory exam: PRESENT: clear to auscultation chiquita. ABSENT: rales, rhonchi, wheezes Cardiovascular exam: PRESENT: RRR. ABSENT: diastolic murmur, rubs, systolic murmur Pulses: PRESENT: normal dorsalis pedis pul Vascular exam: PRESENT: normal capillary refill GI/Abdominal exam: PRESENT: normal bowel sounds, soft. ABSENT: distended, guarding, mass, organolmegaly, rebound, tenderness Rectal exam: PRESENT: deferred Extremities exam: PRESENT: full ROM. ABSENT: calf tenderness, clubbing, pedal edema Neurological exam: PRESENT: alert, awake, oriented to person, oriented to place , oriented to time, oriented to situation, CN II-XII grossly intact. ABSENT: motor sensory deficit Psychiatric exam: PRESENT: appropriate affect, normal mood. ABSENT: homicidal ideation, suicidal ideation Skin exam: PRESENT: dry, intact, warm. ABSENT: cyanosis, rash Results Laboratory Results: 12/11/16 06:02 Impressions: Abdomen/Pelvis CT 12/10/16 19:03 IMPRESSION: New Mild compression fracture of the L2 vertebral body superior endplate. There are also nondisplaced fractures in the proximal left femoral metaphysis, the prosthesis appears intact and in expected position, and this fracture was not seen on the 11/26/2016 radiograph. Otherwise, NO ACUTE PROCESS IN THE ABDOMEN OR PELVIS. Lumbar Spine MRI 12/12/16 00:00 IMPRESSION: Subacute 25% upper endplate compression at L2, correlates with CT abdomen pelvis 12/10/2016 Assessment & Plan - Diagnosis (1) Compression fracture of L2 Is this a current diagnosis for this admission?: YesPlan: The patient is not a candidate for kyphoplasty at this time given her recent stenting in need for antiplatelet therapy. (2) Femur fracture, left Qualifiers: Encounter type: initial encounter Femur location: shaft Fracture type: closed Fracture morphology: oblique Fracture alignment: nondisplaced Qualified Code(s): S72.335A - Nondisplaced oblique fracture of shaft of left femur, initial encounter for closed fracture Is this a current diagnosis for this admission?: YesPlan: Patient has been seen with Dr. Dudley with orthopedics. The patient has not operative candidate this point. (3) HTN (hypertension) Qualifiers: Hypertension type: essential hypertension Qualified Code(s): I10 - Essential (primary) hypertension Is this a current diagnosis for this admission?: YesPlan: Will continue home medications. (4) Hyperlipidemia Qualifiers: Hyperlipidemia type: unspecified Qualified Code(s): E78.5 - Hyperlipidemia, unspecified Is this a current diagnosis for this admission?: YesPlan: Will continue home medications. (5) Hypothyroid Qualifiers: Hypothyroidism type: unspecified Qualified Code(s): E03.9 - Hypothyroidism, unspecified Is this a current diagnosis for this admission?: YesPlan: Will continue home medications. (6) DNR (do not resuscitate) Is this a current diagnosis for this admission?: Yes (7) DVT prophylaxis Is this a current diagnosis for this admission?: YesPlan: Continue subcutaneous heparin (8) Stented coronary artery Is this a current diagnosis for this admission?: YesPlan: Will continue home medications. (9) Depression Qualifiers: Depression Type: major depressive disorder Major depression recurrence : single episode Active/Remission status: currently active Major depression episode severity: moderate Qualified Code(s): F32.1 - Major depressive disorder, single episode, moderate Is this a current diagnosis for this admission?: YesPlan: The patient states that she would like to try Celexa over Zoloft. Will do - Time Time Spent with patient: on this visit including assessment, plan, physical examination, and patient education is 25 minutes. Time Spent with patient: 25-34 minutes Medications reviewed and adjusted accordingly: Yes Anticipated discharge: SNF Within: within 24 hours Disposition: The patient is a DO NOT RESUSCITATE DO NOT INTUBATE. Pending patient's symptomatology and diagnostic findings will reevaluate as needed.
[2016-12-15] MEDS ORDERED: OXYCODONE HCL IR 5 MG TABLET PO PRN (18:16)
[2016-12-15] MEDS ORDERED: PHARMACY COMMUNICATION ORDER MC SCH (22:00)
[2016-12-15] MEDS: ATORVASTATIN CALCIUM 10 MG TABLET PO SCH (23:23)
[2016-12-15] MEDS: GABAPENTIN 100 MG CAPSULE PO SCH (23:23)
[2016-12-15] MEDS: LIDOCAINE 5% (700 MG) TRANSDERMAL ADH..PATCH TP SCH (23:24)
[2016-12-15] MEDS: OXYCODONE HCL IR 5 MG TABLET PO SCH (23:24)
[2016-12-15] MEDS: LIDOCAINE 5% (700 MG) TRANSDERMAL ADH..PATCH TOP SCH (23:32)
[2016-12-16] MEDS: OXYCODONE HCL IR 5 MG TABLET PO SCH ×2 (06:29→14:18)
[2016-12-16] MEDS: TOLTERODINE TARTRATE 1 MG TABLET PO SCH (09:16)
[2016-12-16] MEDS: ISOSORBIDE MONONITRATE 30 MG TAB.ER.24H PO SCH (09:16)
[2016-12-16] MEDS: LEVOTHYROXINE SODIUM 0.025 MG TABLET PO SCH (09:17)
[2016-12-16] MEDS: METOPROLOL SUCCINATE 25 MG TAB.SR.24H PO SCH (09:17)
[2016-12-16] MEDS: CYANOCOBALAMIN (VITAMIN B-12) 1,000 MCG TABLET PO SCH (09:18)
[2016-12-16] MEDS: CLOPIDOGREL BISULFATE 75 MG TABLET PO SCH (09:18)
[2016-12-16] MEDS: ASPIRIN 81 MG TABLET, ENT COATED PO SCH (09:18)
[2016-12-16] MEDS: LISINOPRIL 5 MG TABLET PO SCH (09:19)
[2016-12-16] MEDS: MULTIVITAMINS W-IRON TABLET, CHEWABLE PO SCH (09:19)
[2016-12-16] MEDS: DOCUSATE SODIUM 100 MG CAPSULE PO SCH ×2 (09:19→17:19)
[2016-12-16] MEDS: BRIMONIDINE TARTRATE 0.2% OPH SOLN 5 ML OU SCH ×2 (09:20→17:19)
[2016-12-16] MEDS: HEPARIN SOD (PORCINE) 5,000 UNIT/ML 1 ML SYRINGE SUBCUT SCH (09:20)
[2016-12-16] MEDS ORDERED: CITALOPRAM HYDROBROMIDE 20 MG TABLET PO SCH (10:00)
--- NOTE | 2016-12-16 11:30 | PDOC TRANSFER SUMMARY ---
General - Admit/Disc Date/PCP Admission Date/Primary Care Provider: 12/10/16 23:49 Discharge Date: 12/16/16 - Discharge Diagnosis (1) Compression fracture of L2 Is this a current diagnosis for this admission?: YesSummary: Patient was seen for possible kyphoplasty by Dr Mauricio. Due to her recent cardiac stent placement she will not be a candidate for kyphoplasty due to need for dual antiplatelet therapy medications. Her pain is well controlled with lidoderm patch and prn oxycodone. (2) DVT prophylaxis Is this a current diagnosis for this admission?: Yes (3) Femur fracture, left Is this a current diagnosis for this admission?: YesSummary: Patient was seen by Dr Dudley for proximal femur avulsion fracture. Prosthesis is in good alignment. She does not need operative fixation. She is able to bear weight on left leg. She will need increased rehab for mobility retraining (4) Stented coronary artery Is this a current diagnosis for this admission?: YesSummary: Continue plavix and aspirin. (5) Hyperlipidemia Is this a current diagnosis for this admission?: YesSummary: Continue statin (6) Hypothyroid Is this a current diagnosis for this admission?: YesSummary: Continue statin (7) HTN (hypertension) Is this a current diagnosis for this admission?: YesSummary: Normotensive on current medications (8) Depression Is this a current diagnosis for this admission?: YesSummary: Continue Celexa. Patient was on Zoloft but feels it was not working. She has taken Celexa before and done well with it (9) DNR (do not resuscitate) Is this a current diagnosis for this admission?: YesSummary: Per her request and her son's who is her MPOA - Additional Information Resuscitation Status: Full Code Discharge Diet: Regular Discharge Activity: Activity As Tolerated, Balance Activity w/Rest Home Medications: Amlodipine Besylate [Norvasc 2.5 mg Tablet] 2.5 mg PO DAILY 12/11/16 Aspirin [Ecotrin 81 mg EC Tablet] 81 mg PO DAILY 12/11/16 Atorvastatin Calcium [Lipitor 10 mg Tablet] 10 mg PO QHS 12/11/16 Biotin [Biotin 1 mg Tablet] 4 mg PO Q6HP PRN 12/11/16 Brimonidine Tartrate [Alphagan P] 1 drop OU BID 12/11/16 Clopidogrel Bisulfate [Plavix 75 mg Tablet] 75 mg PO DAILY 12/11/16 Cyanocobalamin (Vitamin B-12) [B-12] 1,000 mcg PO DAILY 12/11/16 Ergocalciferol (Vitamin D2) [Drisdol 50,000 unit (1.25MG) Capsule] 50,000 unit PO [id number] 12/11/16 Fesoterodine Fumarate [Toviaz] 4 mg PO DAILY 12/11/16 Isosorbide Mononitrate [Isosorbide Mononitrate ER] 30 mg PO QAM 12/11/16 Levothyroxine Sodium [Synthroid] 25 mcg PO QAM 12/11/16 Lidocaine [Lidoderm] 1 patch TOP DAILY 12/11/16 Lisinopril 5 mg PO QAM 12/11/16 Metoprolol Succinate [Toprol Xl] 12.5 mg PO DAILY 12/11/16 Multivit-Min/Iron Fum/Folic AC [Newla-Mwjtbhj-Clumyhpb Tablet] 1 tab PO DAILY Nitroglycerin 0.4 mg PO PRN PRN 12/11/16 Ondansetron HCl [Zofran 4 mg Tablet] 4 mg PO Q4HP PRN 12/11/16 Polyethylene Glycol 3350 [Miralax Powder 17 gm/Packet] 17 gm PO DAILYP PRN 12/11 Acetaminophen [Tylenol 325 mg Tablet] 650 mg PO Q4HP PRN tablet 12/16/16 Citalopram Hydrobromide [Celexa 20 mg Tablet] 10 mg PO DAILY tablet 12/16/16 Docusate Sodium [Colace 100 mg Capsule] 100 mg PO BID capsule 12/16/16 Gabapentin [Neurontin 100 mg Capsule] 100 mg PO QHS capsule 12/16/16 Magnesium Hydroxide [Milk of Magnesia 30 ml Udcup] 30 ml PO Q48HP PRN udc 12/16 Methyl Salicylate/Menthol [Zac-[facility] [employer] [place] 29 gm] 1 applic TP TIDP PRN tube 12/16/16 Oxycodone HCl [Oxy-Ir 5 mg Tablet] 5 mg PO Q8 #15 tablet 12/16/16 History of Present Illness Admission Date/PCP: 12/10/16 23:49 Patient is a 81 yr old female who fell on 11/25/2016 and was evaluated at [facility] with no reported acute fractures. She was transferred to [facility] for mobility training due to pain. She continued to have significant pain with therapy. She was referred to the ED on 12/10 and found to have compression L2 fracture and avulsion fracture of left proximal femur with intact prosthesis. Patient was referred to the hospitalist service for admission. Orthopedics was consulted. Hospital Course Hospital Course: Patient was admitted to telemetry. Dr Dudley saw the patient for orthopedics. He felt the patient would not require any orthopedic repair of proximal femur fracture. She could bear weight but would need aggressive rehab for mobility training. Dr Mauricio saw the patient for possible kyphoplasty, but do to patient' s recent cardiac stenting that would preclude her from kyphoplasty as she can not be off the Plavix. Her pain was controlled with lidoderm and oxycodone. She has improved her appetite and is much more comfortable. Discharge planning was consulted to assist with placement. The patient wished to go to [facility] for rehab services. Today she has a bed available and is ready for discharge. Her son was notified by strategic [employer]. Physical Exam Vital Signs: Temp Pulse Resp BP Pulse Ox 97.6 F 54 L 20 121/71 99 12/15/16 23:36 12/16/16 07:00 12/15/16 23:36 12/15/16 23:36 12/15/16 23:36 Intake & Output 12/15/16 12/16/16 12/17/16 06:59 06:59 06:59 Intake Total 665 535 Output Total 300 Balance 365 535 General appearance: PRESENT: no acute distress, thin, well-developed Head exam: PRESENT: atraumatic, normocephalic Eye exam: PRESENT: conjunctiva pink, EOMI, PERRLA. ABSENT: scleral icterus Ear exam: PRESENT: normal external ear exam Mouth exam: PRESENT: moist, tongue midline Neck exam: ABSENT: carotid bruit, JVD, lymphadenopathy, thyromegaly Respiratory exam: PRESENT: clear to auscultation chiquita. ABSENT: rales, rhonchi, wheezes Pulses: PRESENT: normal dorsalis pedis pul Vascular exam: PRESENT: normal capillary refill GI/Abdominal exam: PRESENT: normal bowel sounds, soft. ABSENT: distended, guarding, mass, organolmegaly, rebound, tenderness Rectal exam: PRESENT: deferred Extremities exam: PRESENT: full ROM, tenderness - left proximal femur. ABSENT: calf tenderness, clubbing, pedal edema Musculoskeletal exam: PRESENT: ambulatory, tenderness Neurological exam: PRESENT: alert, awake, oriented to person, oriented to place , oriented to time, oriented to situation, CN II-XII grossly intact. ABSENT: motor sensory deficit Psychiatric exam: PRESENT: appropriate affect, normal mood. ABSENT: homicidal ideation, suicidal ideation Skin exam: PRESENT: dry, intact, warm. ABSENT: cyanosis, rash Results Laboratory Results: 12/11/16 06:02 12/14/16 13:46 Catheterized Urine Urine Culture - Final NO GROWTH 2 DAYS Impressions: Abdomen/Pelvis CT 12/10/16 19:03 IMPRESSION: New Mild compression fracture of the L2 vertebral body superior endplate. There are also nondisplaced fractures in the proximal left femoral metaphysis, the prosthesis appears intact and in expected position, and this fracture was not seen on the 11/26/2016 radiograph. Otherwise, NO ACUTE PROCESS IN THE ABDOMEN OR PELVIS. Lumbar Spine MRI 12/12/16 00:00 IMPRESSION: Subacute 25% upper endplate compression at L2, correlates with CT abdomen pelvis 12/10/2016 Transfer Plan - Disposition Transfer Plan: [facility] for continued rehab therapy Qualifiers [facility]INT BEING DISCHARGED WITH ANY OF THE FOLLOWING DIAGNOSIS?: No Plan Time Spent: Less than 30 Minutes
[2016-12-16 13:14] VITALS: BP 169/84
== END 2016-12-16 19:30 ==
LOC: ER 18:25 → UNDOADMIN 22:37 → EH 22:37 → INTOOBSV 23:49 → 4S 12-11 00:50
PROVIDERS: ADMIT Family Medicine; ATTEND Family Medicine
DX: S32.028A Other fracture of second lumbar vertebra, initial encounter for closed fracture (principal); S72.335A Nondisplaced oblique fracture of shaft of left femur, initial encounter for closed fracture; W19.XXXA Unspecified fall, initial encounter; R30.0 Dysuria; Z98.61 Coronary angioplasty status; E78.5 Hyperlipidemia, unspecified; Z79.82 Long term (current) use of aspirin; E03.9 Hypothyroidism, unspecified; I10 Essential (primary) hypertension; Z79.899 Other long term (current) drug therapy; F32.9 Major depressive disorder, single episode, unspecified; Z66 Do not resuscitate; I25.10 Atherosclerotic heart disease of native coronary artery without angina pectoris; M19.90 Unspecified osteoarthritis, unspecified site; Z86.73 Personal history of transient ischemic attack (TIA), and cerebral infarction without residual deficits; K21.9 Gastro-esophageal reflux disease without esophagitis; Z96.649 Presence of unspecified artificial hip joint; Z79.02 Long term (current) use of antithrombotics/antiplatelets; Z88.8 Allergy status to other drugs, medicaments and biological substances; Z88.1 Allergy status to other antibiotic agents; Z88.7 Allergy status to serum and vaccine; Z91.040 Latex allergy status; Z93.3 Colostomy status; J18.9 Pneumonia, unspecified organism; Z85.828 Personal history of other malignant neoplasm of skin; F41.1 Generalized anxiety disorder; D64.9 Anemia, unspecified; Z90.49 Acquired absence of other specified parts of digestive tract
CPT/HCPCS: 99285; 96361; 96374; 96375; 36415 ×2; 87086; 82553; 82550; 83735; 84443; 85025; 85027; 85610; 80053; 84484; 81001; 72148; 74176; 93005 ×2; 93010 ×2; 97163; G0378 ×6; A9270 ×71; J1644 ×5; J3480; J2270 ×2; J2060; J3490 ×8; J2405; J7030; G8978; G8979